=== PATIENT | female | born 1990 | race Caucasian/White ===

== ENCOUNTER 2018-03-27 09:49 | Day surgery (SDC) | payer BC ==
[~2018-03-27 09:49] MED LIST: Lactated Ringers 1,000 ML IV SCH
[2018-03-27] MEDS ORDERED: Midazolam 1 MG/ML 2 ML SDV ONE (10:14)
[2018-03-27] MEDS ORDERED: Propofol 200 MG/20 ML SDV ONE (10:14)
[2018-03-27] MEDS ORDERED: fentaNYL 250 MCG/5 ML SDV ONE (10:15)
--- NOTE | 2018-03-27 10:15 | PCM.PREANE ---
Preanesthetic Assessment - Anesthesia/Transfusion/Family Hx Anesthesia History: Prior Anesthesia Without Reaction Family History of Anesthesia Reaction: No Transfusion History: No Prior Transfusion(s) Intubation History: Unknown - Review of Systems General: No Symptoms Pulmonary: No Symptoms Cardiovascular: No Symptoms Gastrointestinal: No Symptoms Neurological: No Symptoms Other: Reports: None - Physical Assessment Height: 1.68 m Weight: 119.748 kg ASA Class: 2 Mental Status: Alert & Oriented x3 Airway Class: Mallampati = 2 Dentition: Reports: Normal Dentition, Broken Tooth/Teeth (left upper (back) x1) Thyro-Mental Finger Breadths: 3 Mouth Opening Finger Breadths: 3 ROM/Head Extension: Full Lungs: Clear to Auscultation, Normal Respiratory Effort Cardiovascular: Regular Rate, Regular Rhythm - Allergies Allergies/Adverse Reactions: Allergies Allergy/AdvReac Type Severity Reaction Status Date / Time peanut Allergy Anaphylactic Verified 12/19/16 10:56 Shock - Blood Blood Available: No - Anesthesia Plan Pre-Op Medication Ordered: None - Acknowledgements Anesthesia Type Planned: General Anesthesia Pt an Appropriate Candidate for the Planned Anesthesia: Yes Alternatives and Risks of Anesthesia Discussed w Pt/Guardian: Yes Pt/Guardian Understands and Agrees with Anesthesia Plan: Yes PreAnesthesia Questionnaire HEENT History: Reports: Allergic Rhinitis, Impaired Vision, Other (See Below) Other HEENT History: wears glasses, hx of fx jaw Respiratory History: Reports: Asthma Gastrointestinal History: Reports: Other (See Below) Other Gastrointestinal History: heartburn with [employer]ICAL SUPPORT SPECIALIST History: Reports: Musculoskeletal History: Reports: Fracture Other Musculoskeletal History: hx of fx jaw, fingers and wrist Neurological History: Reports: Other (See Below) (constantly numb fingers, possible cause she gained 100 pounds) Other Neuro History: hx of motion sickness Psychiatric History: Reports: Anxiety Endocrine/Metabolic History: Reports: Obesity/BMI 30+ (BMI 42.6) - Past Surgical History HEENT Surgical History: Reports: Oral Surgery Other HEENT Surgeries/Procedures: wisdom teeth Female Surgical History: Reports: Section (x3), Tubal Ligation - SUBSTANCE USE Smoking Status *Q: Former Smoker (quit smoking 12/15) Tobacco Use Within Last Twelve Months: No Recreational Drug Use History: No - HOME MEDS Home Medications: Home Meds Acetaminophen [Tylenol] 2 tab PO ASDIRECTED PRN 12/19/16 [History] Ibuprofen [IJD: Ibuprofen] 800 mg PO Q8H PRN #30 tablet 12/23/16 [Rx] Albuterol [Ventolin HFA] 2 puff INH Q4H PRN 03/23/18 [History] Iron Supplement 20 mg PO DAILY 03/23/18 [History] Multivitamin [One Daily Multivitamin] 1 tab PO DAILY 03/23/18 [History] - CURRENT (IN HOUSE) MEDS Current Meds: Current Medications Lactated Ringer's (Ringers, Lactated) 1,000 mls @ 125 mls/hr IV ASDIRECTED ARGELIA
[2018-03-27] MEDS ORDERED: Succinylcholine 200 MG/10 ML MDV ONE (10:20)
[2018-03-27] MEDS ORDERED: Rocuronium 10 MG/ML 10 ML Syringe ONE (10:20)
[2018-03-27] MEDS ORDERED: Lidocaine 2% 5 ML SDV ONE (10:21)
--- NOTE | 2018-03-27 11:18 | PCM.OPNOTE ---
- General Post-Op/Procedure Note Date of Surgery/Procedure: 03/27/18 Operative Procedure(s): operative hysteroscopy, polypectomy, fractional dilatation and curettage Findings: uterus anteverted, sounds to 9 cm. polypoid lesion anterior lower uterine segment, removed, several polypoid lesions at fundus removed, irregular dyssynchronous endometrium. Pre Op Diagnosis: menometrorrhagia, endometrial polyp Post-Op Diagnosis: Same Anesthesia Technique: General LMA Primary Surgeon: Pratima Soto Anesthesia Provider: Lebron Sam Pathology: endometrial polyp and directed biopsied, endocervical curettings, endometrial curettings Fluid Replacement, Intraop: 500 EBL in mLs: 20 Drain/Tube Comments:: hysteroscopic deficit 500 ml NS Complications: None known Condition: Good
[2018-03-27] MEDS ORDERED: Ketorolac 30 MG/ML SDV IVPUSH ONE (11:23)
--- NOTE | 2018-03-27 11:49 | PCM.POSTAN ---
POST ANESTHESIA ASSESSMENT - MENTAL STATUS Mental Status: Alert, Oriented - RESPIRATORY Respiratory Status: Respiratory Rate WNL, Airway Patent, O2 Saturation Stable - CARDIOVASCULAR CV Status: Pulse Rate WNL, Blood Pressure Stable - GASTROINTESTINAL GI Status: No Symptoms - PAIN Pain Score: 2 - POST OP HYDRATION Hydration Status: Adequate & Stable - OBSERVATIONS Free Text/Narrative:: no anesthesia problems
--- NOTE | 2018-03-27 12:29 | OR ---
SURGEON: Pratima Soto M.D. DATE OF PROCEDURE: 03/27/2018 PREOPERATIVE DIAGNOSES: 1. Menometrorrhagia. 2. Uterine polyps. POSTOPERATIVE DIAGNOSES: 1. Menometrorrhagia. 2. Uterine polyps. PROCEDURES: Operative hysteroscopy with polypectomy, directed biopsy and fractional D and C. ANESTHESIA: General LMA. ESTIMATED BLOOD LOSS: Less than 20 mL. FLUIDS: 500 mL crystalloid. Hysteroscopic deficit 500 mL normal saline. COMPLICATIONS: None known. DISPOSITION: Stable to recovery. OPERATIVE FINDINGS: Uterus anteverted, sounds to 9 cm. The endometrium in general appeared dyssynchronous, irregular, and prominent. Towards anterior lower uterine segment and also toward the fundus, there were 2 polypoid lesions, each of which were removed. Bilateral tubal ostia were identified. There was excellent visualization on hysteroscopy. BRIEF HISTORY: This is a 27-year-old female, she has had 6 weeks of continuous bleeding. Initial ultrasound showed a 20 mm endometrial thickness with cystic areas within. She subsequently had extremely heavy bleeding followed by a saline- enhanced ultrasound, which showed each endometrial thickness separately measured at 4 mm, total endometrial thickness of 8 mm with polypoid lesions in the lower uterine segment. I recommended proceeding with a hysteroscopic polypectomy, fractional D and C with the option of placing an IUD at the time of the procedure. I did not recommend proceeding with ablation without any prior endometrial biopsy. She declined the Mirena but agrees to proceed with a hysteroscopy-directed biopsy polypectomy and fractional D and C, with risks discussed including bleeding, infection, uterine perforation with injury to surrounding visceral, risk of thromboembolic event, and risk of anesthesia. Understanding all these risks, she does desire to proceed. DESCRIPTION OF PROCEDURE: With the patient in the dorsal lithotomy position, under adequate general LMA analgesia, the perineum and vagina were prepped with Betadine and draped in the usual fashion for vaginal surgery. SCDs were in place. The bladder had been straight cathed and an appropriate time-out was held. After this, a bimanual examination was performed with findings as noted above. Speculum was placed in the vagina. The cervix was grasped with an Allis clamp. The cervix was easily dilated to an 8 mm Hegar dilator. The 0 degree hysteroscope compatible with the MyoSure was placed into the uterine cavity and there was excellent visualization with findings as noted above. The MyoSure was then utilized to excise the polypoid areas as well as do biopsies of the prominent areas of endometrium. This being completed, sharp curettage of the endocervix was performed and tissue was collected with a Cytobrush and sent for pathology. Sharp curettage of the endometrium was then performed starting at 12 o'clock and proceeding in a clockwise manner. There was a moderate amount of tissue obtained. These were also sent for pathology. All the instruments were removed from the vagina. There was minimal vaginal bleeding. Bimanual examination revealed a firm, anteverted uterus. Final sponge, needle, and instrument counts were reported as correct. There were no known complications. The patient was transferred to recovery in good condition. JAXON / GOSIA /[id number]
--- NOTE | 2018-03-27 12:35 | PCM48HPAN ---
Post Anesthesia Note - EVALUATION WITHIN 48HRS OF ANESTHETIC Vital Signs in Normal Range: Yes Patient Participated in Evaluation: Yes Respiratory Function Stable: Yes Airway Patent: Yes Cardiovascular Function Stable: Yes Hydration Status Stable: Yes Pain Control Satisfactory: Yes Nausea and Vomiting Control Satisfactory: Yes Mental Status Recovered: Yes Resp Rate: 15
== END 2018-03-27 12:42 | disposition home or self-care (01) ==
LOC: MW.SDS 09:49
PROVIDERS: ATTEND Obstetrics & Gynecology
DX: N84.0 Polyp of corpus uteri (principal); N92.1 Excessive and frequent menstruation with irregular cycle; J45.909 Unspecified asthma, uncomplicated; L68.0 Hirsutism; E66.9 Obesity, unspecified; Z68.41 Body mass index [BMI] 40.0-44.9, adult; Z87.891 Personal history of nicotine dependence; Z79.899 Other long term (current) drug therapy; F41.9 Anxiety disorder, unspecified
CPT/HCPCS: 58558; J0330; J1885; J2250; J3010; J7120; 00952; 88305; J2704

== ENCOUNTER 2021-05-11 10:51 | Observation (INO) | payer BC ==
[2021-05-11] MEDS ORDERED: Sodium Chloride 0.9% 1,000 ML IV ONE ×2 (11:21→12:14)
--- NOTE | 2021-05-11 11:28 | EDM.PDOC ---
ED HPI GENERAL MEDICAL PROBLEM - General Chief Complaint: Abdominal Pain Stated Complaint: LFT SIDE LOWER SHARP STABBING PAIN Time Seen by Provider: 05/11/21 10:52 Source of Information: Reports: Patient History Limitations: Reports: No Limitations - History of Present Illness INITIAL COMMENTS - FREE TEXT/NARRATIVE: HISTORY AND PHYSICAL: History of present illness: Patient is a 31-year-old female who presents emergency room today with concern of left lower quadrant abdominal pain that started last night that she describes as sharp in nature and states has been coming and going. Patient describes as "ovary pain "but states that she has never had this pain before. Patient states she does have a history of tubal ligation so does not believe to be . Patient states that she does have some fibroids in her uterus, otherwise denies any other health history. Patient denies any abdominal surgery other than the tubal ligation. Patient states that starting today, the pain has now spread to most of her abdomen and is in her right lower abdomen and right upper abdomen and states that she has a hard time moving due to the pain and discomfort. Patient denies any trauma or injury. Patient states she does have some associated nausea but has not vomited. Patient states that she called the [facility] today and was instructed to come to the emergency room due to her symptoms. Patient denies fever, chills, chest pain, shortness of breath, or cough. Denies headache, neck stiff ness, change in vision, syncope, or near syncope. Denies vomiting, diarrhea, constipation, or dysuria. Has not noted any blood in urine or stool. Patient has been eating and drinking appropriately. Review of systems: As per history of present illness and below otherwise all systems reviewed and negative. Past medical history: As per history of present illness and as reviewed below otherwise noncontributory. Surgical history: As per history of present illness and as reviewed below otherwise noncontributory. Social history: See social history for further information Family history: As per history of present illness and as reviewed below otherwise noncontrib utory. Physical exam: General: Patient is alert, oriented, and in no acute distress. Patient laying comfortably on exam table. Tachycardic 115-120s otherwise vitally stable and reviewed by me. HEENT: Atraumatic, normocephalic, pupils equal and reactive bilaterally, negative for conjunctival pallor or scleral icterus, mucous membranes moist, TMs normal bilaterally, throat clear, neck supple, nontender, trachea midline. No drooling or trismus noted. No meningeal signs. No hot potato voice noted. Lungs: Clear to auscultation, breath sounds equal bilaterally, chest nontender. Heart: S1S2, regular rate and rhythm without overt murmur Abdomen: Soft, nondistended, moderate RUQ, RLQ tenderness with guarding, negative rebound/godfrey. Negative for masses or hepatosplenomegaly. Negative for costovertebral tenderness. Pelvis: Stable nontender. Genitourinary: I did offer patient a genitourinary exam, however, she declines at this time stating she has recently had 1 and would not like to repeat this. All risks versus benefits discussed with patient and expresses understanding. Rectal: Deferred. Skin: Intact, warm, dry. No lesions or rashes noted. Extremities: Atraumatic, negative for cords or calf pain. Neurovascular unremarkable. Neuro: Awake, alert, oriented. Cranial nerves II through XII unremarkable. Cerebellum unremarkable. Motor and sensory unremarkable throughout. Exam nonfocal. Notes: Patient is a 31-year-old female who presents emergency room today secondary to left-sided lower sharp abdominal pain that began last night and worsened throughout today spreading to her right sided abdomen. Upon arrival to the ED, patient is tachycardic 115's to 120s on exam, otherwise is vitally stable and well-appearing on exam. Patient does have moderate right upper quadrant and right lower quadrant tenderness with guarding negative rebound and Godfrey. Although patient complains of left-sided lower sharp abdominal pain, on exam, her pain is primarily right-sided. I did offer to perform a genitourinary exam, however, patient declines at this time stating she has had a recent exam and would not like to repeat this. All risks versus benefits discussed with patient and expresses understanding. Will obtain basic lab work, with intention of obtaining transvaginal ultrasound given description of "sharp ovary pain" and abdominal pelvic CT scan with contrast and reassess patient. See Dr. Acosta dictation for specific EKG interpretation. However, sinus tachycardia with a rate of 101 without signs of STEMI or acute ischemic changes. CBC remarkable leukocytosis of 18.73 and lactate within normal limits, mild derangements of remainder of CBC unremarkable. CMP mild derangements unremarkable. hCG negative. Urinalysis clear for any infection. Blood cultures added on and pending. Given patient's leukocytosis with elevated heart rate, sepsis concern at 1300. Initiated a 20 cc/kg bolus of fluids while awaiting imaging completion, source of possible infection not clear at this time. Transvaginal ultrasound shows mild homogeneous thickening of the endometrium at 12 mm. Trace free fluid in the pelvis. Abdominal pelvic CT scan shows focal segmental thickening and pericolonic inflammation of the mid sigmoid colon commensurate with diverticulitis. Normal appendix. Hepatomegaly with hepatic steatosis. All incidental findings of imaging today discussed with patient and to have this followed up at a later date with a primary care provider. Patient had initially declined Toradol, Zofran or Dilaudid initially on presentation to the emergency room. However, on reevaluation of patient, she states she has worsening abdominal pain and would like some pain medication at this time. Also upon reevaluation of patient, she remains mildly tachycardic rate around 100 which increases to approximately 105-110 with movement. Patient also now developing chills at bedside. Patient has been initiated IV levofloxacin 750mg and Flagyl 500mg IV at approximately 14:15. Did call and speak to the hospitalist on-call, Dr. Mitchell, and thoroughly discussed patient's case. Will admit to observation to Dr. Mitchell. Patient transitioned in stable condition to the floor under the care of Dr. Mitchell. Voices understanding and is agreeable to plan of care. Denies any further questions or concerns at this time. Diagnostics: EKG, CBC, CMP, UA, serum hCG, lipase, abdominal pelvic CT with contrast, transvaginal ultrasound, lactate, blood cultures x 2, COVID19 Therapeutics: I did offer patient Toradol Zofran and dilaudid but she declines at this time, agreeable to pain medication upon reevaluation of patient. (Dilaudid, Zofran, Toradol, Ciprofloxacin, Flagyl) Impression: Diverticulitis SIRS r/o Sepsis Plan: Admit to observation to Dr. Mitchell Definitive disposition and diagnosis as appropriate pending reevaluation and review of above. left lower abdominal pain Pain Score (Numeric/FACES): 5 - Related Data Allergies Allergy/AdvReac Type Severity Reaction Status Date / Time peanut Allergy Anaphylactic Verified 05/11/21 11:08 Shock Home Meds: Home Meds Albuterol [Ventolin HFA] 2 puff INH Q4H PRN 03/23/18 [History] Past Medical History HEENT History: Reports: Allergic Rhinitis, Impaired Vision, Other (See Below) Other HEENT History: wears glasses, hx of fx jaw Respiratory History: Reports: Asthma Gastrointestinal History: Reports: Other (See Below) Other Gastrointestinal History: heartburn with [employer]ATOR History: Reports: Musculoskeletal History: Reports: Fracture Other Musculoskeletal History: hx of fx jaw, fingers and wrist Neurological History: Reports: Other (See Below) Other Neuro History: hx of motion sickness Psychiatric History: Reports: Anxiety Endocrine/Metabolic History: Reports: Obesity/BMI 30+ - Past Surgical History Head Surgeries/Procedures: Reports: None HEENT Surgical History: Reports: Oral Surgery Other HEENT Surgeries/Procedures: wisdom teeth Female Surgical History: Reports: Section, Tubal Ligation, Other (See Below) Other Female Surgeries/Procedures: Uterine polyps Social & Family History - Family History HEENT: Reports: None Cardiac: Reports: None Respiratory: Reports: Asthma GI: Reports: None : Reports: None OBGYN: Reports: Musculoskeletal: Reports: None Neurological: Reports: Alzheimers Disease, Dementia Psychiatric: Reports: Anxiety Endocrine/Metabolic: Reports: None Hematologic: Reports: None Immunologic: Reports: None Dermatologic: Reports: None Oncologic: Reports: None - Tobacco Use Tobacco Use Status *Q: Never Tobacco User - Recreational Drug Use Recreational Drug Use: No ED ROS GENERAL - Review of Systems Review Of Systems: Comprehensive ROS is negative, except as noted in HPI. ED EXAM, GENERAL - Physical Exam Exam: See Below (see dictation) Course - Vital Signs Last Recorded V/S: Last Vital Signs Temp 96.6 F L 05/11/21 21:04 Pulse 82 05/11/21 21:04 Resp 17 05/11/21 21:04 BP 100/54 L 05/11/21 21:04 Pulse Ox 98 05/11/21 21:04 - Orders/Labs/Meds Orders: Active Orders 24 hr Category Date Time Status Admission Status [Patient Status] [ADT] Stat ADT 05/11/21 14:33 Active CULTURE BLOOD [BC] Stat Lab 05/11/21 12:58 Received CULTURE BLOOD [BC] Stat Lab 05/11/21 13:05 Received Blood Culture x2 Reflex Set [OM.PC] Stat Oth 05/11/21 12:13 Ordered Medication Orders Enoxaparin Sodium (Enoxaparin 40 Mg/0.4 Ml Syringe) 40 mg SUBCUT Q24H [facility] Last Admin: 05/11/21 17:45 Dose: 40 mg Documented by: MEÑO Hydromorphone HCl (Hydromorphone 1 Mg/Ml Syringe) 0.5 mg IVPUSH Q3H PRN PRN Reason: Pain (severe 7-10) Lactated Ringer's (Ringers, Lactated) 1,000 mls @ 125 mls/hr IV Q8H [facility] Last Admin: 05/11/21 17:44 Dose: 125 mls/hr Documented by: MEÑO Levofloxacin/Dextrose 750 mg/ (Premix) 150 mls @ 100 mls/hr IV Q24H [facility] Pantoprazole Sodium 40 mg/ (Sodium Chloride) 10 mls @ 300 mls/hr IV Q24H [facility] Last Admin: 05/11/21 17:44 Dose: 300 mls/hr Documented by: MEÑO Metronidazole 500 mg/ Premix 100 mls @ 100 mls/hr IV Q6H [facility] Last Admin: 05/11/21 18:47 Dose: 100 mls/hr Documented by: MEÑO Ondansetron HCl (Ondansetron 4 Mg/2 Ml Sdv) 4 mg IVPUSH Q4H PRN PRN Reason: Nausea Sodium Chloride (Sodium Chloride 0.9% 2.5 Ml Syringe) 2.5 ml FLUSH ASDIRECTED PRN PRN Reason: Keep Vein Open Labs: Laboratory Tests 05/11/21 05/11/21 05/11/21 Range/Units 11:38 11:38 11:38 WBC 18.73 H (4.0-11.0) K/uL RBC 4.75 (4.30-5.90) M/uL Hgb 13.0 (12.0-16.0) g/dL Hct 38.8 (36.0-46.0) % MCV 81.7 (80.0-98.0) fL MCH 27.4 (27.0-32.0) pg MCHC 33.5 (31.0-37.0) g/dL RDW Std Deviation 41.7 (28.0-62.0) fl RDW Coeff of Jeffery 14 (11.0-15.0) % Plt Count 283 (150-400) K/uL MPV 10.50 (7.40-12.00) fL Neut % (Auto) 80.3 H (48.0-80.0) % Lymph % (Auto) 14.9 L (16.0-40.0) % Ware % (Auto) 4.4 (0.0-15.0) % Eos % (Auto) 0.3 (0.0-7.0) % Baso % (Auto) 0.1 (0.0-1.5) % Neut # (Auto) 15.1 H (1.4-5.7) K/uL Lymph # (Auto) 2.8 H (0.6-2.4) K/uL Ware # (Auto) 0.8 (0.0-0.8) K/uL Eos # (Auto) 0.1 (0.0-0.7) K/uL Baso # (Auto) 0.0 (0.0-0.1) K/uL Nucleated RBC % 0.0 /100WBC Nucleated RBCs # 0 K/uL Sodium 140 (136-145) mmol/L Potassium 4.1 (3.5-5.1) mmol/L Chloride 103 (98-107) mmol/L Carbon Dioxide 27.9 (21.0-32.0) mmol/L BUN 13 (7.0-18.0) mg/dL Creatinine 1.0 (0.6-1.0) mg/dL Est Cr Clr Drug Dosing 72.68 mL/min Estimated GFR (MDRD) > 60.0 ml/min Glucose 98 (74-106) mg/dL Lactic Acid (0.4-2.0) mmol/L Calcium 8.6 (8.5-10.1) mg/dL Total Bilirubin 0.5 (0.2-1.0) mg/dL AST 19 (15-37) IU/L ALT 28 (14-63) IU/L Alkaline Phosphatase 71 (46-116) U/L Total Protein 7.3 (6.4-8.2) g/dL Albumin 3.2 L (3.4-5.0) g/dL Globulin 4.1 H (2.6-4.0) g/dL Albumin/Globulin Ratio 0.8 L (0.9-1.6) Lipase 69 L (73-393) U/L HCG, Qual NEGATIVE (NEG) Urine Color Urine Appearance Urine pH (5.0-8.0) Ur Specific [place] (1.001-1.035) Urine Protein (NEGATIVE) mg/dL Urine Glucose (UA) (NEGATIVE) mg/dL Urine Ketones (NEGATIVE) mg/dL Urine Occult Blood (NEGATIVE) Urine Nitrite (NEGATIVE) Urine Bilirubin (NEGATIVE) Urine Urobilinogen (<2.0) EU/dL Ur Leukocyte Esterase (NEGATIVE) SARS-CoV-2 RNA (DARNELL) (NEGATIVE) 05/11/21 05/11/21 05/11/21 Range/Units 12:13 12:19 14:40 WBC (4.0-11.0) K/uL RBC (4.30-5.90) M/uL Hgb (12.0-16.0) g/dL Hct (36.0-46.0) % MCV (80.0-98.0) fL MCH (27.0-32.0) pg MCHC (31.0-37.0) g/dL RDW Std Deviation (28.0-62.0) fl RDW Coeff of Jeffery (11.0-15.0) % Plt Count (150-400) K/uL MPV (7.40-12.00) fL Neut % (Auto) (48.0-80.0) % Lymph % (Auto) (16.0-40.0) % Ware % (Auto) (0.0-15.0) % Eos % (Auto) (0.0-7.0) % Baso % (Auto) (0.0-1.5) % Neut # (Auto) (1.4-5.7) K/uL Lymph # (Auto) (0.6-2.4) K/uL Ware # (Auto) (0.0-0.8) K/uL Eos # (Auto) (0.0-0.7) K/uL Baso # (Auto) (0.0-0.1) K/uL Nucleated RBC % /100WBC Nucleated RBCs # K/uL Sodium (136-145) mmol/L Potassium (3.5-5.1) mmol/L Chloride (98-107) mmol/L Carbon Dioxide (21.0-32.0) mmol/L BUN (7.0-18.0) mg/dL Creatinine (0.6-1.0) mg/dL Est Cr Clr Drug Dosing mL/min Estimated GFR (MDRD) ml/min Glucose (74-106) mg/dL Lactic Acid 1.1 (0.4-2.0) mmol/L Calcium (8.5-10.1) mg/dL Total Bilirubin (0.2-1.0) mg/dL AST (15-37) IU/L ALT (14-63) IU/L Alkaline Phosphatase (46-116) U/L Total Protein (6.4-8.2) g/dL Albumin (3.4-5.0) g/dL Globulin (2.6-4.0) g/dL Albumin/Globulin Ratio (0.9-1.6) Lipase (73-393) U/L HCG, Qual (NEG) Urine Color YELLOW Urine Appearance SLT CLOUDY Urine pH 6.0 (5.0-8.0) Ur Specific [place] 1.025 (1.001-1.035) Urine Protein NEGATIVE (NEGATIVE) mg/dL Urine Glucose (UA) NEGATIVE (NEGATIVE) mg/dL Urine Ketones NEGATIVE (NEGATIVE) mg/dL Urine Occult Blood NEGATIVE (NEGATIVE) Urine Nitrite NEGATIVE (NEGATIVE) Urine Bilirubin NEGATIVE (NEGATIVE) Urine Urobilinogen 0.2 (<2.0) EU/dL Ur Leukocyte Esterase NEGATIVE (NEGATIVE) SARS-CoV-2 RNA (DARNELL) NEGATIVE (NEGATIVE) Meds: Medications Generic Name Dose Route Start Last Admin Trade Name Freq PRN Reason Stop Dose Admin Enoxaparin Sodium 40 mg 05/11/21 16:00 05/11/21 17:45 Enoxaparin 40 Mg/0.4 Ml Syringe SUBCUT 40 mg Q24H ARG[facility]IA Administration Hydromorphone HCl 0.5 mg 05/11/21 16:05 Hydromorphone 1 Mg/Ml Syringe IVPUSH Q3H PRN Pain (severe 7-10) Lactated Ringer's 1,000 mls @ 125 mls/hr 05/11/21 16:00 05/11/21 17:44 Ringers, Lactated IV 125 mls/hr Q8H ARGELIA Administration Levofloxacin/Dextrose 750 mg/ 150 mls @ 100 mls/hr 05/12/21 14:00 Premix IV Q24H ARGELIA Pantoprazole Sodium 40 mg/ 10 mls @ 300 mls/hr 05/11/21 17:00 05/11/21 17:44 Sodium Chloride IV 300 mls/hr Q24H ARGELIA Administration Metronidazole 500 mg/ Premix 100 mls @ 100 mls/hr 05/11/21 19:00 05/11/21 18:47 IV 100 mls/hr Q6H ARG[facility]IA Administration Ondansetron HCl 4 mg 05/11/21 15:57 Ondansetron 4 Mg/2 Ml Sdv IVPUSH Q4H PRN Nausea Sodium Chloride 2.5 ml 05/11/21 15:57 Sodium Chloride 0.9% 2.5 Ml Syringe FLUSH ASDIRECTED PRN Keep Vein Open Discontinued Medications Generic Name Dose Route Start Last Admin Trade Name Freq PRN Reason Stop Dose Admin Hydromorphone HCl 0.5 mg 05/11/21 14:23 05/11/21 14:26 Hydromorphone 2 Mg/Ml Syringe IVPUSH 05/11/21 14:24 0.5 mg ONETIME ONE Administration Sodium Chloride 1,000 mls @ 999 mls/hr 05/11/21 11:21 05/11/21 11:50 Normal Saline IV 05/11/21 12:21 999 mls/hr BOLUS ONE Administration Sodium Chloride 1,000 mls @ 999 mls/hr 05/11/21 12:14 05/11/21 13:14 Normal Saline IV 05/11/21 13:14 999 mls/hr STAT ONE Administration Metronidazole 500 mg/ Premix 100 mls @ 100 mls/hr 05/11/21 14:14 05/11/21 14:26 IV 05/11/21 15:13 100 mls/hr ONETIME ONE Administration Levofloxacin/Dextrose 750 mg/ 150 mls @ 100 mls/hr 05/11/21 14:24 05/11/21 15:55 Premix IV 05/11/21 15:53 100 mls/hr ONETIME ONE Administration Metronidazole 500 mg/ Premix 100 mls @ 100 mls/hr 05/11/21 18:00 IV QID ARGELIA Iopamidol 100 ml 05/11/21 12:35 05/11/21 13:32 Iopamidol 755 Mg/Ml 100 Ml Bottle IVPUSH 05/11/21 12:36 Not Given ONETIME ONE Iopamidol 100 ml 05/11/21 12:38 05/11/21 12:38 Iopamidol 755 Mg/Ml 500 Ml Multipack Bottle IVPUSH 05/11/21 12:39 100 ml ONETIME STA Administration Ketorolac Tromethamine 30 mg 05/11/21 14:23 05/11/21 14:27 Ketorolac 30 Mg/Ml Sdv IVPUSH 05/11/21 14:24 30 mg ONETIME ONE Administration Ondansetron HCl 4 mg 05/11/21 14:39 05/11/21 14:48 Ondansetron 4 Mg/2 Ml Sdv IVPUSH 05/11/21 14:40 4 mg ONETIME ONE Administration Departure - Departure Time of Disposition: 14:45 Disposition: Refer to Observation Clinical Impression: Diverticulitis, SIRS (systemic inflammatory response syndrome) - Discharge Information Sepsis Event Note (ED) - Evaluation Sepsis Screening Result: Possible Sepsis Risk - Focused Exam Vital Signs: Vital Signs Temp Pulse Resp BP BP Pulse Ox 05/11/21 14:40 88 17 109/67 97 05/11/21 13:17 97.3 F 94 18 114/58 L 98 05/11/21 12:59 93 17 112/51 L 98 05/11/21 11:09 96.3 F L 116 H 18 121/83 96 - My Orders Last 24 Hours: My Active Orders 05/11/21 12:13 Blood Culture x2 Reflex Set [OM.PC] Stat 05/11/21 12:58 CULTURE BLOOD [BC] Stat 05/11/21 13:05 CULTURE BLOOD [BC] Stat 05/11/21 14:33 Admission Status [Patient Status] [ADT] Stat - Assessment/Plan Last 24 Hours: My Active Orders 05/11/21 12:13 Blood Culture x2 Reflex Set [OM.PC] Stat 05/11/21 12:58 CULTURE BLOOD [BC] Stat 05/11/21 13:05 CULTURE BLOOD [BC] Stat 05/11/21 14:33 Admission Status [Patient Status] [ADT] Stat
--- NOTE | 2021-05-11 11:36 | PCM.SN.2 ---
- Free Text/Narrative Note: EKG done at 1133 sinus tachycardia with a heart rate of 101 IL interval 160 QT duration 459 and axis of 31. QRS ST and T are normal. Is no prior for comparison. Impression except for the rate this is normal EKG.
[2021-05-11 12:14] LABS: BLOOD UREA NITROGEN,BUN 13 mg/dL (7.0-18.0); CARBON DIOXIDE,CO2 27.9 mmol/L (21.0-32.0); CHLORIDE,CL 103 mmol/L (98-107); GLUCOSE RANDOM 98 mg/dL (74-106); LIPASE 69 U/L (73-393); POTASSIUM,K 4.1 mmol/L (3.5-5.1); SODIUM,NA 140 mmol/L (136-145)
[2021-05-11] MEDS ORDERED: Iopamidol 755 Mg/ML 100 ML Bottle IVPUSH ONE (12:35)
[2021-05-11] MEDS ORDERED: Iopamidol 755 MG/ML 500 ML Multipack Bottle IVPUSH STA (12:38)
--- NOTE | 2021-05-11 13:51 | CT ---
Indication: Periumbilical abdominal pain Technique: Volumetric multidetector CT images of the abdomen and pelvis were obtained after the administration of intravenous contrast. 100 cc Isovue 370 low osmolar intravenous contrast Comparison: None available. Findings: The lung bases are clear. The liver is enlarged with mild to moderate hepatic steatosis. There is no evidence of focal abnormality. The portal vein is patent. The gallbladder is unremarkable without evidence of radiopaque calculus. There is no significant common biliary ductal dilatation or abrupt cut off. The spleen is normal in enhancement and size. The stomach and duodenum are grossly unremarkable. The pancreas is normal in enhancement without significant atrophy. The adrenal glands are unremarkable. The kidneys demonstrate preserved corticomedullary differentiation without evidence of obstructive uropathy. There is focal segmental thickening and pericolonic inflammation of the mid sigmoid colon commensurate with uncomplicated diverticulitis. The remaining bowel is grossly unremarkable. The appendix is unremarkable. There is no significant mesenteric, retroperitoneal, or pelvic sidewall lymph nodes. The aorta is nonaneurysmal. There is no significant atherosclerotic disease appreciated. The solid pelvic viscera are grossly unremarkable. There is no free fluid or free air. There is a small fat containing umbilical hernia. The lumbar vertebral body heights are grossly maintained with minimal endplate Schmorl`s defects. There is mild to moderate degenerative disc disease. There is no evidence of displaced fracture. Impression: Focal segmental thickening and pericolonic inflammation of the mid sigmoid colon commensurate with diverticulitis. Normal appendix. Hepatomegaly and hepatic steatosis. Please note that all CT scans at this facility use dose modulation, iterative reconstruction, and/or weight-based dosing when appropriate to reduce radiation dose to as low as reasonably achievable. Dictated by Shabbir Vidal MD @ 05/11/2021 1:50:[address] Shabbir Vidal @ May 11 2021 1:50PM
--- NOTE | 2021-05-11 14:01 | US ---
INDICATION: Quadrant sharp stabbing pain TECHNIQUE: Ultrasound pelvis transvaginal only. COMPARISON: None FINDINGS: Uterus: 8.5 centimeter x 4.7 centimeter 4.8 centimeter normal echotexture of the myometrium. No masses. Endometrium: The endometrium measures 12 mm in thickness. No sign of endometrial mass or fluid. Right ovary: 2.8 centimeter x 2.5 centimeter x 1.5 centimeter. No ovarian or adnexal masses. Normal arterial and venous blood flow. Left ovary: 3.1 centimeter x 2.7 centimeter x 1.8 centimeter. No ovarian or adnexal masses. Normal arterial and venous blood flow. Cul-de-sac: Trace free fluid. IMPRESSION: Mild homogeneous thickening of the endometrium at 12 millimeters. Trace free fluid in the pelvis. Dictated by Lebron Chaves MD @ 05/11/2021 2:00:[address] Lebron Chaves @ May 11 2021 2:00PM
[2021-05-11] MEDS ORDERED: metroNIDAZOLE/Normal Saline 500 MG in Premix Bag 1 BAG IV ONE (14:14)
[2021-05-11] MEDS ORDERED: HYDROmorphone 2 MG/ML Syringe IVPUSH ONE (14:23)
[2021-05-11] MEDS ORDERED: Ketorolac 30 MG/ML SDV IVPUSH ONE (14:23)
[2021-05-11] MEDS ORDERED: Levofloxacin/Dextrose 5%-Water 750 MG in Premix Bag 1 BAG IV ONE (14:24)
[2021-05-11] MEDS ORDERED: Ondansetron 4 MG/2 ML SDV IVPUSH ONE (14:39)
[2021-05-11] MEDS ORDERED: Sodium Chloride 0.9% 2.5 ML Syringe FLUSH PRN (15:57)
--- NOTE | 2021-05-11 15:57 | PCM.HP.2 ---
H&P History of Present Illness - General Date of Service: 05/11/21 Admit Problem/Dx: Admission Diagnosis/Problem Admission Diagnosis/Problem Diverticulitis Source of Information: Patient History Limitations: Reports: No Limitations - History of Present Illness Initial Comments - Free Text/Narative: This 31-year-old female with past medical history of obesity presented to the ER today with left lower quadrant pain. She reports this pain started suddenly last evening and has progressively worsened to the point where she felt she need to be evaluated. She reports the pain has spread to cover the entire abdomen having dry heaves and some nausea. She reports that last evening she felt like she eventually had a fever but was not able to check it she felt like she was s weating even though she had the fan and AC on in her home. She reports that she felt as though she is had a sinus infection or increased congestion over the last week and otherwise has not felt well and was eating a lot of fast food and getting [employer]. She otherwise has been eating more healthy and intentionally has lost 30 to 40 pounds over the last few months. She denies any chest pain shortness of breath palpitations. No dysuria but does report some increased abdominal pain when she is emptying her bladder. Denies any overt frequency urgency or pain with urination. She denies history of this in the past denies history of IBD or IBS but does report that her grandma has diverticulitis diverticulosis as well. She denies any history of bowel habit changes and no cancer history for her. She denies any history of colonoscopy in the past. She denies any tobacco use recreational drug use or alcohol use. In the ER leukocytosis 18,000 noted with a left shift. Platelet count 283,000. Sodium 140 potassium 4.1 BUN/creatinine 13 and 1.0. Lactic acid 1.1 lipase [address] negative[address] UA negative. CT of her abdomen pelvis was obtained due to abdominal pain and leukocytosis. This revealed enlarged liver with hepatic Stata ptosis. She was informed of this of the in the ER. It also showed focal segmental thickening and pericolonic inflammation of the mid sigmoid colon with uncomplicated diverticulitis remaining bowel is grossly unremarkable. Normal appendix. Upon arrival to the ER she was noted to be tachycardic with temperature of 96.3. Blood pressure stable 121/83. Patient lactic acid normal. She was treated with 2 L fluid bolus in the ER along with Flagyl and Levaquin. Blood cultures obtained prior to antibiotic administration. Patient to be admitted secondary to acute sigmoid diverticulitis. left lower abdominal pain Pain Score (Numeric/FACES): 5 - Related Data Allergies/Adverse Reactions: Allergies Allergy/AdvReac Type Severity Reaction Status Date / Time peanut Allergy Anaphylactic Verified 05/11/21 11:08 Shock Home Medications: Home Meds Albuterol [Ventolin HFA] 2 puff INH Q4H PRN 03/23/18 [History] Past Medical History HEENT History: Reports: Allergic Rhinitis, Impaired Vision, Other (See Below) Other HEENT History: wears glasses, hx of fx jaw Cardiovascular History: Reports: None. Denies: Afib, Blood Clots/VTE/DVT, Hypertension Respiratory History: Reports: Asthma Gastrointestinal History: Reports: Other (See Below). Denies: GI Bleed, Inflammatory Bowel Disease, Irritable Bowel Syndrome Other Gastrointestinal History: heartburn with HOSPITAL ADMISSIONS OFFICER History: Reports: Musculoskeletal History: Reports: Fracture Other Musculoskeletal History: hx of fx jaw, fingers and wrist Neurological History: Reports: Other (See Below) Other Neuro History: hx of motion sickness Psychiatric History: Reports: Anxiety Endocrine/Metabolic History: Reports: Obesity/BMI 30+. Denies: Diabetes, Type II, Hypothyroidism - Past Surgical History Head Surgeries/Procedures: Reports: None HEENT Surgical History: Reports: Oral Surgery Other HEENT Surgeries/Procedures: wisdom teeth Female Surgical History: Reports: Section, Tubal Ligation, Other (See Below) Other Female Surgeries/Procedures: Uterine polyps Social & Family History - Family History HEENT: Reports: None Cardiac: Reports: None Respiratory: Reports: Asthma GI: Reports: None : Reports: None OBGYN: Reports: Musculoskeletal: Reports: None Neurological: Reports: Alzheimers Disease, Dementia Psychiatric: Reports: Anxiety Endocrine/Metabolic: Reports: None Hematologic: Reports: None Immunologic: Reports: None Dermatologic: Reports: None Oncologic: Reports: None - Tobacco Use Tobacco Use Status *Q: Never Tobacco User - Alcohol Use Alcohol Use History: No - Recreational Drug Use Recreational Drug Use: No - Living Situation & Occupation Living situation: Reports: with Family Occupation: Employed H&P Review of Systems - Review of Systems: Review Of Systems: See Below General: Reports: Fever, Chills, Malaise HEENT: Reports: Sinus Congestion. Denies: Headaches, Sore Throat, Vertigo Pulmonary: Reports: No Symptoms. Denies: Shortness of Breath Cardiovascular: Reports: No Symptoms. Denies: Chest Pain Gastrointestinal: Reports: Abdominal Pain (LLQ), Nausea. Denies: Black Stool, Bloody Stool, Diarrhea, Vomiting Genitourinary: Reports: No Symptoms. Denies: Dysuria, Frequency, Burning, Pain Musculoskeletal: Reports: No Symptoms. Denies: Neck Pain Skin: Reports: No Symptoms. Denies: Wound Psychiatric: Reports: No Symptoms Neurological: Reports: No Symptoms Hematologic/Lymphatic: Reports: No Symptoms Immunologic: Reports: No Symptoms Exam - Exam Exam: See Below - Vital Signs Vital Signs: Last Vital Signs Temp 97.3 F 05/11/21 13:17 Pulse 88 05/11/21 14:40 Resp 17 05/11/21 14:40 BP 109/67 05/11/21 14:40 Pulse Ox 97 05/11/21 14:40 Weight: 108.862 kg - Exam General: Alert, Oriented, Cooperative HEENT: Conjunctiva Clear, Mucosa Moist & [place], Posterior Pharynx Clear Lungs: Clear to Auscultation, Normal Respiratory Effort Cardiovascular: Regular Rate, Regular Rhythm GI/Abdominal Exam: Normal Bowel Sounds, Soft, No Distention, Tender (diffusely with most pain to LLQ) Extremities: Normal Inspection, Normal Range of Motion, Non-Tender, No Pedal Edema Neurological: Cranial Nerves Intact Neuro Extensive - Mental Status: Alert, Oriented x3 Neuro Extensive - Motor, Sensory, Reflexes: CN II-XII Intact Psychiatric: Alert, Normal Affect, Normal Mood - Patient Data Lab Results Last 24 hrs: Laboratory Results - last 24 hr 05/11/21 05/11/21 05/11/21 Range/Units 11:38 11:38 11:38 WBC 18.73 H (4.0-11.0) K/uL RBC 4.75 (4.30-5.90) M/uL Hgb 13.0 (12.0-16.0) g/dL Hct 38.8 (36.0-46.0) % MCV 81.7 (80.0-98.0) fL MCH 27.4 (27.0-32.0) pg MCHC 33.5 (31.0-37.0) g/dL RDW Std Deviation 41.7 (28.0-62.0) fl RDW Coeff of Jeffery 14 (11.0-15.0) % Plt Count 283 (150-400) K/uL MPV 10.50 (7.40-12.00) fL Neut % (Auto) 80.3 H (48.0-80.0) % Lymph % (Auto) 14.9 L (16.0-40.0) % [place] % (Auto) 4.4 (0.0-15.0) % Eos % (Auto) 0.3 (0.0-7.0) % Baso % (Auto) 0.1 (0.0-1.5) % Neut # (Auto) 15.1 H (1.4-5.7) K/uL Lymph # (Auto) 2.8 H (0.6-2.4) K/uL [place] # (Auto) 0.8 (0.0-0.8) K/uL Eos # (Auto) 0.1 (0.0-0.7) K/uL Baso # (Auto) 0.0 (0.0-0.1) K/uL Nucleated RBC % 0.0 /100WBC Nucleated RBCs # 0 K/uL Sodium 140 (136-145) mmol/L Potassium 4.1 (3.5-5.1) mmol/L Chloride 103 (98-107) mmol/L Carbon Dioxide 27.9 (21.0-32.0) mmol/L BUN 13 (7.0-18.0) mg/dL Creatinine 1.0 (0.6-1.0) mg/dL Est Cr Clr Drug Dosing 72.68 mL/min Estimated GFR (MDRD) > 60.0 ml/min Glucose 98 (74-106) mg/dL Lactic Acid (0.4-2.0) mmol/L Calcium 8.6 (8.5-10.1) mg/dL Total Bilirubin 0.5 (0.2-1.0) mg/dL AST 19 (15-37) IU/L ALT 28 (14-63) IU/L Alkaline Phosphatase 71 (46-116) U/L Total Protein 7.3 (6.4-8.2) g/dL Albumin 3.2 L (3.4-5.0) g/dL Globulin 4.1 H (2.6-4.0) g/dL Albumin/Globulin Ratio 0.8 L (0.9-1.6) Lipase 69 L (73-393) U/L HCG, Qual NEGATIVE (NEG) Urine Color Urine Appearance Urine pH (5.0-8.0) Ur Specific [place] (1.001-1.035) Urine Protein (NEGATIVE) mg/dL Urine Glucose (UA) (NEGATIVE) mg/dL Urine Ketones (NEGATIVE) mg/dL Urine Occult Blood (NEGATIVE) Urine Nitrite (NEGATIVE) Urine Bilirubin (NEGATIVE) Urine Urobilinogen (<2.0) EU/dL Ur Leukocyte Esterase (NEGATIVE) SARS-CoV-2 RNA (DARNELL) (NEGATIVE) 05/11/21 05/11/21 05/11/21 Range/Units 12:13 12:19 14:40 WBC (4.0-11.0) K/uL RBC (4.30-5.90) M/uL Hgb (12.0-16.0) g/dL Hct (36.0-46.0) % MCV (80.0-98.0) fL MCH (27.0-32.0) pg MCHC (31.0-37.0) g/dL RDW Std Deviation (28.0-62.0) fl RDW Coeff of Jeffery (11.0-15.0) % Plt Count (150-400) K/uL MPV (7.40-12.00) fL Neut % (Auto) (48.0-80.0) % Lymph % (Auto) (16.0-40.0) % [place] % (Auto) (0.0-15.0) % Eos % (Auto) (0.0-7.0) % Baso % (Auto) (0.0-1.5) % Neut # (Auto) (1.4-5.7) K/uL Lymph # (Auto) (0.6-2.4) K/uL [place] # (Auto) (0.0-0.8) K/uL Eos # (Auto) (0.0-0.7) K/uL Baso # (Auto) (0.0-0.1) K/uL Nucleated RBC % /100WBC Nucleated RBCs # K/uL Sodium (136-145) mmol/L Potassium (3.5-5.1) mmol/L Chloride (98-107) mmol/L Carbon Dioxide (21.0-32.0) mmol/L BUN (7.0-18.0) mg/dL Creatinine (0.6-1.0) mg/dL Est Cr Clr Drug Dosing mL/min Estimated GFR (MDRD) ml/min Glucose (74-106) mg/dL Lactic Acid 1.1 (0.4-2.0) mmol/L Calcium (8.5-10.1) mg/dL Total Bilirubin (0.2-1.0) mg/dL AST (15-37) IU/L ALT (14-63) IU/L Alkaline Phosphatase (46-116) U/L Total Protein (6.4-8.2) g/dL Albumin (3.4-5.0) g/dL Globulin (2.6-4.0) g/dL Albumin/Globulin Ratio (0.9-1.6) Lipase (73-393) U/L HCG, Qual (NEG) Urine Color YELLOW Urine Appearance SLT CLOUDY Urine pH 6.0 (5.0-8.0) Ur Specific [place] 1.025 (1.001-1.035) Urine Protein NEGATIVE (NEGATIVE) mg/dL Urine Glucose (UA) NEGATIVE (NEGATIVE) mg/dL Urine Ketones NEGATIVE (NEGATIVE) mg/dL Urine Occult Blood NEGATIVE (NEGATIVE) Urine Nitrite NEGATIVE (NEGATIVE) Urine Bilirubin NEGATIVE (NEGATIVE) Urine Urobilinogen 0.2 (<2.0) EU/dL Ur Leukocyte Esterase NEGATIVE (NEGATIVE) SARS-CoV-2 RNA (DARNELL) NEGATIVE (NEGATIVE) Result Diagrams: 05/11/21 11:38 05/11/21 11:38 Sepsis Event Note - Evaluation Sepsis Screening Result: Possible Sepsis Risk Possible Source of Sepsis: GI Tract/Intra-abdominal - Focused Exam Vital Signs: Vital Signs Temp Pulse Resp BP BP Pulse Ox 05/11/21 14:40 88 17 109/67 97 05/11/21 13:17 97.3 F 94 18 114/58 L 98 05/11/21 12:59 93 17 112/51 L 98 05/11/21 11:09 96.3 F L 116 H 18 121/83 96 Capillary Refill, Detail: Less than/Equal to (</=) 2 Seconds Pulse Description: 2+ Normal Peripheral Pulse Location: Radial Skin Exam (Focused Sepsis): Normal Turgor Date Exam was Performed: 05/11/21 Time Exam was Performed: 15:45 - Problem List (1) Diverticulitis SNOMED Code(s): 175102899 ICD Code: K57.92 - DVTRCLI OF INTEST, PART UNSP, W/O PERF OR ABSCESS W/O BLEED Status: Acute Current Visit: Yes (2) SIRS (systemic inflammatory response syndrome) SNOMED Code(s): 989931416 ICD Code: R65.10 - SIRS OF NON-INFECTIOUS ORIGIN W/O ACUTE ORGAN DYSFUNCTION Status: Acute Current Visit: Yes (3) Obesity SNOMED Code(s): 442092280, 148071550 ICD Code: E66.9 - OBESITY, UNSPECIFIED Status: Chronic Current Visit: Yes Problem List Initiated/Reviewed/Updated: Yes Orders Last 24hrs: Active Orders 24 hr Category Date Time Status Admission Status [Patient Status] [ADT] Stat ADT 05/11/21 14:33 Active EKG Documentation Completion [RC] STAT Care 05/11/21 11:24 Active CULTURE BLOOD [BC] Stat Lab 05/11/21 12:58 Received CULTURE BLOOD [BC] Stat Lab 05/11/21 13:05 Received Levofloxacin/Dextrose 5%-Water [Levaquin in D5W 750 MG/ Med 05/11/21 14:24 Active 150 ML] 750 mg Premix Bag 1 bag IV ONETIME Blood Culture x2 Reflex Set [OM.PC] Stat Oth 05/11/21 12:13 Ordered Medication Orders Levofloxacin/Dextrose 750 mg/ (Premix) 150 mls @ 100 mls/hr IV ONETIME ONE Stop: 05/11/21 15:53 Assessment/Plan Comment:: This 31-year-old female admitted with acute sigmoid diverticulitis. 1. Acute sigmoid diverticulitis -Continue bowel rest -Continue IV fluids LR 125 mL/h -Blood cultures pending -Continue Levaquin 750 IV daily and Flagyl 500 mg IV 4 times daily -Dilaudid and Zofran as needed pain and nausea -Arrange outpatient general surgery follow up for colonoscopy. VTE prophylaxis: Lovenox GI prophylaxis: Protonix CODE STATUS: Full code Dispo: 2 to 3 days pending improvement.
[2021-05-11] MEDS ORDERED: Pantoprazole 40 MG Vial IV SCH (16:00)
[2021-05-11] MEDS ORDERED: HYDROmorphone 1 MG/ML Syringe IVPUSH PRN (16:05)
[2021-05-11] MEDS: Pantoprazole 40 MG in Sodium Chloride 0.9% 10 ML IV SCH (17:44)
[2021-05-11] MEDS: Lactated Ringers 1,000 ML IV SCH (17:44)
[2021-05-11] MEDS: Enoxaparin 40 MG/0.4 ML Syringe SUBCUT SCH (17:45)
[2021-05-11] MEDS ORDERED: metroNIDAZOLE/Normal Saline 500 MG in Premix Bag 1 BAG IV SCH (18:00)
[2021-05-11] MEDS: metroNIDAZOLE/Normal Saline 500 MG in Premix Bag 1 BAG IV SCH (18:47)
[2021-05-11] MEDS: Ondansetron 4 MG/2 ML SDV IVPUSH PRN (22:14)
[2021-05-12] MEDS: metroNIDAZOLE/Normal Saline 500 MG in Premix Bag 1 BAG IV SCH ×4 (00:16→18:52)
[2021-05-12] MEDS: Lactated Ringers 1,000 ML IV SCH ×3 (03:23→15:25)
[2021-05-12 05:50] LABS: BLOOD UREA NITROGEN,BUN 11 mg/dL (7.0-18.0); CARBON DIOXIDE,CO2 28.6 mmol/L (21.0-32.0); CHLORIDE,CL 105 mmol/L (98-107); GLUCOSE RANDOM 94 mg/dL (74-106); SODIUM,NA 140 mmol/L (136-145)
[2021-05-12] MEDS ORDERED: Ketorolac 30 MG/ML SDV IVPUSH ONE (09:02)
--- NOTE | 2021-05-12 10:42 | PCM.PN ---
- General Info Date of Service: 05/12/21 Admission Dx/Problem (Free Text): Admission Diagnosis/Problem Admission Diagnosis/Problem Diverticulitis Subjective Update: Reports abdominal pain is much improved. Took Dilaudid at 4:00 in the morning but that was more for her migraine which did not help. Feels she is passing gas no bowel movement, feeling so she would like to try a diet. Denies any chest pain or shortness of breath. Very eager to go home when possible. Functional Status: Reports: Pain Controlled, Tolerating Diet, Ambulating - Review of Systems HEENT: Reports: Headaches Pulmonary: Reports: No Symptoms. Denies: Shortness of Breath Cardiovascular: Reports: No Symptoms. Denies: Chest Pain Gastrointestinal: Reports: Abdominal Pain (No longer diffuse target more with dull soreness to to left lower quadrant no longer the sharp shooting pain), Nausea, Vomiting Genitourinary: Reports: No Symptoms. Denies: Dysuria, Frequency, Burning Musculoskeletal: Reports: No Symptoms Skin: Reports: No Symptoms Neurological: Reports: No Symptoms Psychiatric: Reports: No Symptoms - Patient Data Vitals - Most Recent: Last Vital Signs Temp 98.1 F 05/12/21 07:30 Pulse 86 05/12/21 07:30 Resp 18 05/12/21 07:30 BP 132/70 05/12/21 07:30 Pulse Ox 97 05/12/21 07:30 Weight - Most Recent: 112.763 kg I&O - Last 24 Hours: Intake & Output 05/11/21 05/12/21 05/12/21 22:59 06:59 14:59 Output Total 0 Balance 0 Lab Results Last 24 Hours: Laboratory Results - last 24 hr 05/11/21 05/11/21 05/11/21 Range/Units 11:38 11:38 11:38 WBC 18.73 H (4.0-11.0) K/uL RBC 4.75 (4.30-5.90) M/uL Hgb 13.0 (12.0-16.0) g/dL Hct 38.8 (36.0-46.0) % MCV 81.7 (80.0-98.0) fL MCH 27.4 (27.0-32.0) pg MCHC 33.5 (31.0-37.0) g/dL RDW Std Deviation 41.7 (28.0-62.0) fl RDW Coeff of Jeffery 14 (11.0-15.0) % Plt Count 283 (150-400) K/uL MPV 10.50 (7.40-12.00) fL Neut % (Auto) 80.3 H (48.0-80.0) % Lymph % (Auto) 14.9 L (16.0-40.0) % [place] % (Auto) 4.4 (0.0-15.0) % Eos % (Auto) 0.3 (0.0-7.0) % Baso % (Auto) 0.1 (0.0-1.5) % Neut # (Auto) 15.1 H (1.4-5.7) K/uL Lymph # (Auto) 2.8 H (0.6-2.4) K/uL Metcalfe # (Auto) 0.8 (0.0-0.8) K/uL Eos # (Auto) 0.1 (0.0-0.7) K/uL Baso # (Auto) 0.0 (0.0-0.1) K/uL Nucleated RBC % 0.0 /100WBC Nucleated RBCs # 0 K/uL Sodium 140 (136-145) mmol/L Potassium 4.1 (3.5-5.1) mmol/L Chloride 103 (98-107) mmol/L Carbon Dioxide 27.9 (21.0-32.0) mmol/L BUN 13 (7.0-18.0) mg/dL Creatinine 1.0 (0.6-1.0) mg/dL Est Cr Clr Drug Dosing 72.68 mL/min Estimated GFR (MDRD) > 60.0 ml/min Glucose 98 (74-106) mg/dL Lactic Acid (0.4-2.0) mmol/L Calcium 8.6 (8.5-10.1) mg/dL Total Bilirubin 0.5 (0.2-1.0) mg/dL AST 19 (15-37) IU/L ALT 28 (14-63) IU/L Alkaline Phosphatase 71 (46-116) U/L Total Protein 7.3 (6.4-8.2) g/dL Albumin 3.2 L (3.4-5.0) g/dL Globulin 4.1 H (2.6-4.0) g/dL Albumin/Globulin Ratio 0.8 L (0.9-1.6) Lipase 69 L (73-393) U/L HCG, Qual NEGATIVE (NEG) Urine Color Urine Appearance Urine pH (5.0-8.0) Ur Specific [place] (1.001-1.035) Urine Protein (NEGATIVE) mg/dL Urine Glucose (UA) (NEGATIVE) mg/dL Urine Ketones (NEGATIVE) mg/dL Urine Occult Blood (NEGATIVE) Urine Nitrite (NEGATIVE) Urine Bilirubin (NEGATIVE) Urine Urobilinogen (<2.0) EU/dL Ur Leukocyte Esterase (NEGATIVE) SARS-CoV-2 RNA (DARNELL) (NEGATIVE) 05/11/21 05/11/21 05/11/21 Range/Units 12:13 12:19 14:40 WBC (4.0-11.0) K/uL RBC (4.30-5.90) M/uL Hgb (12.0-16.0) g/dL Hct (36.0-46.0) % MCV (80.0-98.0) fL MCH (27.0-32.0) pg MCHC (31.0-37.0) g/dL RDW Std Deviation (28.0-62.0) fl RDW Coeff of Jeffery (11.0-15.0) % Plt Count (150-400) K/uL MPV (7.40-12.00) fL Neut % (Auto) (48.0-80.0) % Lymph % (Auto) (16.0-40.0) % [place] % (Auto) (0.0-15.0) % Eos % (Auto) (0.0-7.0) % Baso % (Auto) (0.0-1.5) % Neut # (Auto) (1.4-5.7) K/uL Lymph # (Auto) (0.6-2.4) K/uL [place] # (Auto) (0.0-0.8) K/uL Eos # (Auto) (0.0-0.7) K/uL Baso # (Auto) (0.0-0.1) K/uL Nucleated RBC % /100WBC Nucleated RBCs # K/uL Sodium (136-145) mmol/L Potassium (3.5-5.1) mmol/L Chloride (98-107) mmol/L Carbon Dioxide (21.0-32.0) mmol/L BUN (7.0-18.0) mg/dL Creatinine (0.6-1.0) mg/dL Est Cr Clr Drug Dosing mL/min Estimated GFR (MDRD) ml/min Glucose (74-106) mg/dL Lactic Acid 1.1 (0.4-2.0) mmol/L Calcium (8.5-10.1) mg/dL Total Bilirubin (0.2-1.0) mg/dL AST (15-37) IU/L ALT (14-63) IU/L Alkaline Phosphatase (46-116) U/L Total Protein (6.4-8.2) g/dL Albumin (3.4-5.0) g/dL Globulin (2.6-4.0) g/dL Albumin/Globulin Ratio (0.9-1.6) Lipase (73-393) U/L HCG, Qual (NEG) Urine Color YELLOW Urine Appearance SLT CLOUDY Urine pH 6.0 (5.0-8.0) Ur Specific [place] 1.025 (1.001-1.035) Urine Protein NEGATIVE (NEGATIVE) mg/dL Urine Glucose (UA) NEGATIVE (NEGATIVE) mg/dL Urine Ketones NEGATIVE (NEGATIVE) mg/dL Urine Occult Blood NEGATIVE (NEGATIVE) Urine Nitrite NEGATIVE (NEGATIVE) Urine Bilirubin NEGATIVE (NEGATIVE) Urine Urobilinogen 0.2 (<2.0) EU/dL Ur Leukocyte Esterase NEGATIVE (NEGATIVE) SARS-CoV-2 RNA (DARNELL) NEGATIVE (NEGATIVE) 05/12/21 05/12/21 Range/Units 04:52 04:52 WBC 11.82 H (4.0-11.0) K/uL RBC 4.38 (4.30-5.90) M/uL Hgb 11.8 L (12.0-16.0) g/dL Hct 35.9 L (36.0-46.0) % MCV 82.0 (80.0-98.0) fL MCH 26.9 L (27.0-32.0) pg MCHC 32.9 (31.0-37.0) g/dL RDW Std Deviation 42.8 (28.0-62.0) fl RDW Coeff of Jeffery 14 (11.0-15.0) % Plt Count 233 (150-400) K/uL MPV 10.20 (7.40-12.00) fL Neut % (Auto) 74.5 (48.0-80.0) % Lymph % (Auto) 19.3 (16.0-40.0) % [place] % (Auto) 5.3 (0.0-15.0) % Eos % (Auto) 0.7 (0.0-7.0) % Baso % (Auto) 0.2 (0.0-1.5) % Neut # (Auto) 8.8 H (1.4-5.7) K/uL Lymph # (Auto) 2.3 (0.6-2.4) K/uL [place] # (Auto) 0.6 (0.0-0.8) K/uL Eos # (Auto) 0.1 (0.0-0.7) K/uL Baso # (Auto) 0.0 (0.0-0.1) K/uL Nucleated RBC % 0.0 /100WBC Nucleated RBCs # 0 K/uL Sodium 140 (136-145) mmol/L Potassium 4.0 (3.5-5.1) mmol/L Chloride 105 (98-107) mmol/L Carbon Dioxide 28.6 (21.0-32.0) mmol/L BUN 11 (7.0-18.0) mg/dL Creatinine 1.0 (0.6-1.0) mg/dL Est Cr Clr Drug Dosing 72.68 mL/min Estimated GFR (MDRD) > 60.0 ml/min Glucose 94 (74-106) mg/dL Lactic Acid (0.4-2.0) mmol/L Calcium 7.9 L (8.5-10.1) mg/dL Total Bilirubin (0.2-1.0) mg/dL AST (15-37) IU/L ALT (14-63) IU/L Alkaline Phosphatase (46-116) U/L Total Protein (6.4-8.2) g/dL Albumin (3.4-5.0) g/dL Globulin (2.6-4.0) g/dL Albumin/Globulin Ratio (0.9-1.6) Lipase (73-393) U/L HCG, Qual (NEG) Urine Color Urine Appearance Urine pH (5.0-8.0) Ur Specific [place] (1.001-1.035) Urine Protein (NEGATIVE) mg/dL Urine Glucose (UA) (NEGATIVE) mg/dL Urine Ketones (NEGATIVE) mg/dL Urine Occult Blood (NEGATIVE) Urine Nitrite (NEGATIVE) Urine Bilirubin (NEGATIVE) Urine Urobilinogen (<2.0) EU/dL Ur Leukocyte Esterase (NEGATIVE) SARS-CoV-2 RNA (DARNELL) (NEGATIVE) Med Orders - Current: Current Medications Enoxaparin Sodium (Enoxaparin 40 Mg/0.4 Ml Syringe) 40 mg SUBCUT Q24H [facility] Last Admin: 05/11/21 17:45 Dose: 40 mg Documented by: Hydromorphone HCl (Hydromorphone 1 Mg/Ml Syringe) 0.5 mg IVPUSH Q3H PRN PRN Reason: Pain (severe 7-10) Last Admin: 05/12/21 04:13 Dose: 0.5 mg Documented by: Lactated Ringer's (Ringers, Lactated) 1,000 mls @ 125 mls/hr IV Q8H [facility] Last Admin: 05/12/21 03:23 Dose: 125 mls/hr Documented by: Levofloxacin/Dextrose 750 mg/ (Premix) 150 mls @ 100 mls/hr IV Q24H [facility] Pantoprazole Sodium 40 mg/ (Sodium Chloride) 10 mls @ 300 mls/hr IV Q24H [facility] Last Admin: 05/11/21 17:44 Dose: 300 mls/hr Documented by: Metronidazole 500 mg/ Premix 100 mls @ 100 mls/hr IV Q6H [facility] Last Admin: 05/12/21 06:21 Dose: 100 mls/hr Documented by: Ondansetron HCl (Ondansetron 4 Mg/2 Ml Sdv) 4 mg IVPUSH Q4H PRN PRN Reason: Nausea Last Admin: 05/11/21 22:14 Dose: 4 mg Documented by: Sodium Chloride (Sodium Chloride 0.9% 2.5 Ml Syringe) 2.5 ml FLUSH ASDIRECTED PRN PRN Reason: Keep Vein Open Discontinued Medications Hydromorphone HCl (Hydromorphone 2 Mg/Ml Syringe) 0.5 mg IVPUSH ONETIME ONE Stop: 05/11/21 14:24 Last Admin: 05/11/21 14:26 Dose: 0.5 mg Documented by: Sodium Chloride (Normal Saline) 1,000 mls @ 999 mls/hr IV BOLUS ONE Stop: 05/11/21 12:21 Last Admin: 05/11/21 11:50 Dose: 999 mls/hr Documented by: Sodium Chloride (Normal Saline) 1,000 mls @ 999 mls/hr IV STAT ONE Stop: 05/11/21 13:14 Last Admin: 05/11/21 13:14 Dose: 999 mls/hr Documented by: Metronidazole 500 mg/ Premix 100 mls @ 100 mls/hr IV ONETIME ONE Stop: 05/11/21 15:13 Last Admin: 05/11/21 14:26 Dose: 100 mls/hr Documented by: Levofloxacin/Dextrose 750 mg/ (Premix) 150 mls @ 100 mls/hr IV ONETIME ONE Stop: 05/11/21 15:53 Last Admin: 05/11/21 15:55 Dose: 100 mls/hr Documented by: Metronidazole 500 mg/ Premix 100 mls @ 100 mls/hr IV QID [facility] Iopamidol (Iopamidol 755 Mg/Ml 100 Ml Bottle) 100 ml IVPUSH ONETIME ONE Stop: 05/11/21 12:36 Last Admin: 05/11/21 13:32 Dose: Not Given Documented by: Iopamidol (Iopamidol 755 Mg/Ml 500 Ml Multipack Bottle) 100 ml IVPUSH ONETIME STA Stop: 05/11/21 12:39 Last Admin: 05/11/21 12:38 Dose: 100 ml Documented by: Ketorolac Tromethamine (Ketorolac 30 Mg/Ml Sdv) 30 mg IVPUSH ONETIME ONE Stop: 05/11/21 14:24 Last Admin: 05/11/21 14:27 Dose: 30 mg Documented by: Ketorolac Tromethamine (Ketorolac 30 Mg/Ml Sdv) 30 mg IVPUSH ONETIME ONE Stop: 05/12/21 09:03 Last Admin: 05/12/21 09:11 Dose: 30 mg Documented by: Ondansetron HCl (Ondansetron 4 Mg/2 Ml Sdv) 4 mg IVPUSH ONETIME ONE Stop: 05/11/21 14:40 Last Admin: 05/11/21 14:48 Dose: 4 mg Documented by: - Exam General: Alert, Oriented, Cooperative, No Acute Distress Lungs: Clear to Auscultation, Normal Respiratory Effort Cardiovascular: Regular Rate, Regular Rhythm GI/Abdominal Exam: Normal Bowel Sounds, Soft, Tender (Scant tenderness to left lower quadrant much improved from yesterday.) Extremities: Normal Inspection, Normal Range of Motion, Non-Tender, No Pedal Edema Wound/Incisions: Healing Well Neurological: No New Focal Deficit Psy/Mental Status: Alert, Normal Affect, Normal Mood - Patient Data Lab Results Last 24 hrs: Laboratory Results - last 24 hr 05/11/21 05/11/21 05/11/21 Range/Units 11:38 11:38 11:38 WBC 18.73 H (4.0-11.0) K/uL RBC 4.75 (4.30-5.90) M/uL Hgb 13.0 (12.0-16.0) g/dL Hct 38.8 (36.0-46.0) % MCV 81.7 (80.0-98.0) fL MCH 27.4 (27.0-32.0) pg MCHC 33.5 (31.0-37.0) g/dL RDW Std Deviation 41.7 (28.0-62.0) fl RDW Coeff of Jeffery 14 (11.0-15.0) % Plt Count 283 (150-400) K/uL MPV 10.50 (7.40-12.00) fL Neut % (Auto) 80.3 H (48.0-80.0) % Lymph % (Auto) 14.9 L (16.0-40.0) % [place] % (Auto) 4.4 (0.0-15.0) % Eos % (Auto) 0.3 (0.0-7.0) % Baso % (Auto) 0.1 (0.0-1.5) % Neut # (Auto) 15.1 H (1.4-5.7) K/uL Lymph # (Auto) 2.8 H (0.6-2.4) K/uL [place] # (Auto) 0.8 (0.0-0.8) K/uL Eos # (Auto) 0.1 (0.0-0.7) K/uL Baso # (Auto) 0.0 (0.0-0.1) K/uL Nucleated RBC % 0.0 /100WBC Nucleated RBCs # 0 K/uL Sodium 140 (136-145) mmol/L Potassium 4.1 (3.5-5.1) mmol/L Chloride 103 (98-107) mmol/L Carbon Dioxide 27.9 (21.0-32.0) mmol/L BUN 13 (7.0-18.0) mg/dL Creatinine 1.0 (0.6-1.0) mg/dL Est Cr Clr Drug Dosing 72.68 mL/min Estimated GFR (MDRD) > 60.0 ml/min Glucose 98 (74-106) mg/dL Lactic Acid (0.4-2.0) mmol/L Calcium 8.6 (8.5-10.1) mg/dL Total Bilirubin 0.5 (0.2-1.0) mg/dL AST 19 (15-37) IU/L ALT 28 (14-63) IU/L Alkaline Phosphatase 71 (46-116) U/L Total Protein 7.3 (6.4-8.2) g/dL Albumin 3.2 L (3.4-5.0) g/dL Globulin 4.1 H (2.6-4.0) g/dL Albumin/Globulin Ratio 0.8 L (0.9-1.6) Lipase 69 L (73-393) U/L HCG, Qual NEGATIVE (NEG) Urine Color Urine Appearance Urine pH (5.0-8.0) Ur Specific [place] (1.001-1.035) Urine Protein (NEGATIVE) mg/dL Urine Glucose (UA) (NEGATIVE) mg/dL Urine Ketones (NEGATIVE) mg/dL Urine Occult Blood (NEGATIVE) Urine Nitrite (NEGATIVE) Urine Bilirubin (NEGATIVE) Urine Urobilinogen (<2.0) EU/dL Ur Leukocyte Esterase (NEGATIVE) SARS-CoV-2 RNA (DARNELL) (NEGATIVE) 05/11/21 05/11/21 05/11/21 Range/Units 12:13 12:19 14:40 WBC (4.0-11.0) K/uL RBC (4.30-5.90) M/uL Hgb (12.0-16.0) g/dL Hct (36.0-46.0) % MCV (80.0-98.0) fL MCH (27.0-32.0) pg MCHC (31.0-37.0) g/dL RDW Std Deviation (28.0-62.0) fl RDW Coeff of Jeffery (11.0-15.0) % Plt Count (150-400) K/uL MPV (7.40-12.00) fL Neut % (Auto) (48.0-80.0) % Lymph % (Auto) (16.0-40.0) % [place] % (Auto) (0.0-15.0) % Eos % (Auto) (0.0-7.0) % Baso % (Auto) (0.0-1.5) % Neut # (Auto) (1.4-5.7) K/uL Lymph # (Auto) (0.6-2.4) K/uL [place] # (Auto) (0.0-0.8) K/uL Eos # (Auto) (0.0-0.7) K/uL Baso # (Auto) (0.0-0.1) K/uL Nucleated RBC % /100WBC Nucleated RBCs # K/uL Sodium (136-145) mmol/L Potassium (3.5-5.1) mmol/L Chloride (98-107) mmol/L Carbon Dioxide (21.0-32.0) mmol/L BUN (7.0-18.0) mg/dL Creatinine (0.6-1.0) mg/dL Est Cr Clr Drug Dosing mL/min Estimated GFR (MDRD) ml/min Glucose (74-106) mg/dL Lactic Acid 1.1 (0.4-2.0) mmol/L Calcium (8.5-10.1) mg/dL Total Bilirubin (0.2-1.0) mg/dL AST (15-37) IU/L ALT (14-63) IU/L Alkaline Phosphatase (46-116) U/L Total Protein (6.4-8.2) g/dL Albumin (3.4-5.0) g/dL Globulin (2.6-4.0) g/dL Albumin/Globulin Ratio (0.9-1.6) Lipase (73-393) U/L HCG, Qual (NEG) Urine Color YELLOW Urine Appearance SLT CLOUDY Urine pH 6.0 (5.0-8.0) Ur Specific [place] 1.025 (1.001-1.035) Urine Protein NEGATIVE (NEGATIVE) mg/dL Urine Glucose (UA) NEGATIVE (NEGATIVE) mg/dL Urine Ketones NEGATIVE (NEGATIVE) mg/dL Urine Occult Blood NEGATIVE (NEGATIVE) Urine Nitrite NEGATIVE (NEGATIVE) Urine Bilirubin NEGATIVE (NEGATIVE) Urine Urobilinogen 0.2 (<2.0) EU/dL Ur Leukocyte Esterase NEGATIVE (NEGATIVE) SARS-CoV-2 RNA (DARNELL) NEGATIVE (NEGATIVE) 05/12/21 05/12/21 Range/Units 04:52 04:52 WBC 11.82 H (4.0-11.0) K/uL RBC 4.38 (4.30-5.90) M/uL Hgb 11.8 L (12.0-16.0) g/dL Hct 35.9 L (36.0-46.0) % MCV 82.0 (80.0-98.0) fL MCH 26.9 L (27.0-32.0) pg MCHC 32.9 (31.0-37.0) g/dL RDW Std Deviation 42.8 (28.0-62.0) fl RDW Coeff of Jeffery 14 (11.0-15.0) % Plt Count 233 (150-400) K/uL MPV 10.20 (7.40-12.00) fL Neut % (Auto) 74.5 (48.0-80.0) % Lymph % (Auto) 19.3 (16.0-40.0) % [place] % (Auto) 5.3 (0.0-15.0) % Eos % (Auto) 0.7 (0.0-7.0) % Baso % (Auto) 0.2 (0.0-1.5) % Neut # (Auto) 8.8 H (1.4-5.7) K/uL Lymph # (Auto) 2.3 (0.6-2.4) K/uL [place] # (Auto) 0.6 (0.0-0.8) K/uL Eos # (Auto) 0.1 (0.0-0.7) K/uL Baso # (Auto) 0.0 (0.0-0.1) K/uL Nucleated RBC % 0.0 /100WBC Nucleated RBCs # 0 K/uL Sodium 140 (136-145) mmol/L Potassium 4.0 (3.5-5.1) mmol/L Chloride 105 (98-107) mmol/L Carbon Dioxide 28.6 (21.0-32.0) mmol/L BUN 11 (7.0-18.0) mg/dL Creatinine 1.0 (0.6-1.0) mg/dL Est Cr Clr Drug Dosing 72.68 mL/min Estimated GFR (MDRD) > 60.0 ml/min Glucose 94 (74-106) mg/dL Lactic Acid (0.4-2.0) mmol/L Calcium 7.9 L (8.5-10.1) mg/dL Total Bilirubin (0.2-1.0) mg/dL AST (15-37) IU/L ALT (14-63) IU/L Alkaline Phosphatase (46-116) U/L Total Protein (6.4-8.2) g/dL Albumin (3.4-5.0) g/dL Globulin (2.6-4.0) g/dL Albumin/Globulin Ratio (0.9-1.6) Lipase (73-393) U/L HCG, Qual (NEG) Urine Color Urine Appearance Urine pH (5.0-8.0) Ur Specific [place] (1.001-1.035) Urine Protein (NEGATIVE) mg/dL Urine Glucose (UA) (NEGATIVE) mg/dL Urine Ketones (NEGATIVE) mg/dL Urine Occult Blood (NEGATIVE) Urine Nitrite (NEGATIVE) Urine Bilirubin (NEGATIVE) Urine Urobilinogen (<2.0) EU/dL Ur Leukocyte Esterase (NEGATIVE) SARS-CoV-2 RNA (DARNELL) (NEGATIVE) Result Diagrams: 05/12/21 04:52 05/12/21 04:52 Sepsis Event Note - Evaluation Sepsis Screening Result: No Definite Risk - Focused Exam Vital Signs: Vital Signs Temp Pulse Resp BP Pulse Ox 05/12/21 07:30 98.1 F 86 18 132/70 97 05/12/21 05:11 96.8 F L 81 17 115/61 98 05/12/21 01:00 99.0 F 84 17 110/54 L 97 - Problem List & Annotations (1) Diverticulitis SNOMED Code(s): 565161483 Code(s): K57.92 - DVTRCLI OF INTEST, PART UNSP, W/O PERF OR ABSCESS W/O BLEED Status: Acute Current Visit: Yes (2) SIRS (systemic inflammatory response syndrome) SNOMED Code(s): 043709638 Code(s): R65.10 - SIRS OF NON-INFECTIOUS ORIGIN W/O ACUTE ORGAN DYSFUNCTION Status: Acute Current Visit: Yes (3) Obesity SNOMED Code(s): 986608705, 054752198 Code(s): E66.9 - OBESITY, UNSPECIFIED Status: Chronic Current Visit: Yes - Problem List Review Problem List Initiated/Reviewed/Updated: Yes - My Orders Last 24 Hours: My Active Orders 05/11/21 15:57 Ambulate [RC] ASDIRECTED May Shower [RC] ASDIRECTED Oxygen Therapy [RC] PRN Up ad Priti [RC] ASDIRECTED VTE/DVT Education [RC] PER UNIT ROUTINE Vital Signs [RC] Q4H Ondansetron [Zofran] 4 mg IVPUSH Q4H PRN Sodium Chloride 0.9% [Saline Flush] 2.5 ml FLUSH ASDIRECTED PRN Saline Lock Insert [OM.PC] Routine Resuscitation Status Routine 05/11/21 15:58 Intake and Output [RC] Q12H 05/11/21 16:00 Enoxaparin [Lovenox] 40 mg SUBCUT Q24H Lactated Ringers [Ringers, Lactated] 1,000 ml IV Q8H 05/11/21 16:05 HYDROmorphone [Dilaudid] 0.5 mg IVPUSH Q3H PRN 05/11/21 19:00 metroNIDAZOLE/Normal Saline [Flagyl in NS 500 MG/100 ML] 500 mg Premix Bag 1 bag IV Q6H 05/12/21 Breakfast Clear Liquid Diet [DIET] 05/12/21 14:00 Levofloxacin/Dextrose 5%-Water [Levaquin in D5W 750 MG/150 ML] 750 mg Premix Bag 1 bag IV Q24H 05/13/21 05:11 BASIC METABOLIC PANEL,BMP [CHEM] AM CBC WITH AUTO DIFF [HEME] AM 05/14/21 05:11 BASIC METABOLIC PANEL,BMP [CHEM] AM CBC WITH AUTO DIFF [HEME] AM - Plan Plan:: This 31-year-old female admitted with acute sigmoid diverticulitis. 1. Acute sigmoid diverticulitis -Advance to clear liquid diet -Continue IV fluids LR 125 mL/h -Blood cultures pending -Continue Levaquin 750 IV daily and Flagyl 500 mg IV 4 times daily -Dilaudid and Zofran as needed pain and nausea -Arrange outpatient general surgery follow up for colonoscopy. -Given Toradol for headache we will continue to monitor. VTE prophylaxis: Lovenox GI prophylaxis: Protonix CODE STATUS: Full code Dispo: Possible home today or more likely in a.m..
[2021-05-12] MEDS: Ondansetron 4 MG/2 ML SDV IVPUSH PRN ×2 (10:52→16:55)
[2021-05-12] MEDS ORDERED: Levofloxacin/Dextrose 5%-Water 750 MG in Premix Bag 1 BAG IV SCH (14:00)
[2021-05-12] MEDS: Pantoprazole 40 MG in Sodium Chloride 0.9% 10 ML IV SCH (16:16)
[2021-05-12] MEDS: Enoxaparin 40 MG/0.4 ML Syringe SUBCUT SCH (16:19)
[2021-05-12] MEDS: Ketorolac 15 MG/ML SDV IVPUSH PRN (16:20)
--- NOTE | 2021-05-12 21:51 | PCM.SN.2 ---
- Free Text/Narrative Note: patient reporting sharp pain with inspiration on the upper shoulders. this started tonight after walking to the bathroom. Lung sounds clear, heart regular rate and rhythm. No chest pain on palpation. Patient believes it could be from laying down all day. Will get EKG. Patient not wanting further work up at this time. probability of PE is low.
[2021-05-13] MEDS: Lactated Ringers 1,000 ML IV SCH ×2 (01:00→10:36)
[2021-05-13] MEDS: metroNIDAZOLE/Normal Saline 500 MG in Premix Bag 1 BAG IV SCH ×2 (01:04→06:58)
[2021-05-13 05:57] LABS: BLOOD UREA NITROGEN,BUN 9 mg/dL (7.0-18.0); CARBON DIOXIDE,CO2 28.8 mmol/L (21.0-32.0); CHLORIDE,CL 102 mmol/L (98-107); GLUCOSE RANDOM 103 mg/dL (74-106); POTASSIUM,K 3.8 mmol/L (3.5-5.1); SODIUM,NA 138 mmol/L (136-145)
[2021-05-13] MEDS: Ketorolac 15 MG/ML SDV IVPUSH PRN (08:02)
--- NOTE | 2021-05-13 10:02 | PCM.DCSUM1 ---
Discharge Summary - Hospital Course Brief History: This 31-year-old female with past medical history of obesity presented to the ER today with left lower quadrant pain. She reports this pain started suddenly last evening and has progressively worsened to the point where she felt she need to be evaluated. She reports the pain has spread to cover the entire abdomen having dry heaves and some nausea. She reports that last evening she felt like she eventually had a fever but was not able to check it she felt like she was sweating even though she had the fan and AC on in her home. She reports that she felt as though she is had a sinus infection or increased congestion over the last week and otherwise has not felt well and was eating a lot of fast food and getting doordash. She otherwise has been eating more healthy and intentionally has lost 30 to 40 pounds over the last few months. She denies any chest pain shortness of breath palpitations. No dysuria but does report some increased abdominal pain when she is emptying her bladder. Denies any overt frequency urgency or pain with urination. She denies history of this in the past denies history of IBD or IBS but does report that her grandma has diverticulitis diverticulosis as well. She denies any history of bowel habit changes and no cancer history for her. She denies any history of colonoscopy in the past. She denies any tobacco use recreational drug use or alcohol use. In the ER leukocytosis 18,000 noted with a left shift. Platelet count 283,000. Sodium 140 potassium 4.1 BUN/creatinine 13 and 1.0. Lactic acid 1.1 lipase [address]CG negative. UA negative. CT of her abdomen pelvis was obtained due to abdominal pain and leukocytosis. This revealed enlarged liver with hepatic Stata ptosis. She was informed of this of the in the ER. It also showed focal segmental thickening and pericolonic inflammation of the mid sigmoid colon with uncomplicated diverticulitis remaining bowel is grossly unremarkable. Normal appendix. Upon arrival to the ER she was noted to be tachycardic with temperature of 96.3. Blood pressure stable 121/83. Patient lactic acid normal. She was treated with 2 L fluid bolus in the ER along with Flagyl and Levaquin. Blood cultures obtained prior to antibiotic administration. Patient to be admitted secondary to acute sigmoid diverticulitis. - Discharge Data Discharge Date: 05/13/21 Discharge Disposition: Home, Self-Care 01 Condition: Good - Referral to Home Health Primary Care Physician: Pratima Soto MD - Discharge Diagnosis/Problem(s) (1) Diverticulitis SNOMED Code(s): 424358336 ICD Code: K57.92 - DVTRCLI OF INTEST, PART UNSP, W/O PERF OR ABSCESS W/O BLEED Status: Acute Current Visit: Yes (2) SIRS (systemic inflammatory response syndrome) SNOMED Code(s): 239537354 ICD Code: R65.10 - SIRS OF NON-INFECTIOUS ORIGIN W/O ACUTE ORGAN DYSFUNCTION Status: Acute Current Visit: Yes (3) Obesity SNOMED Code(s): 413093694, 924525194 ICD Code: E66.9 - OBESITY, UNSPECIFIED Status: Chronic Current Visit: Yes - Patient Summary/Data Hospital Course: Admission diagnosis Acute uncomplicated sigmoid diverticulitis Discharge diagnoses Acute uncomplicated sigmoid diverticulitis Katherine was admitted secondary to abdominal pain and was found to have acute sigmoid diverticulitis. She was started on bowel rest, IV fluids, pain medications and antiemetics along with Levaquin and Flagyl. She has significant leukocytosis on arrival but on day 2 of admission this had improved significantly and today has further improved. She has been afebrile. Yesterday she was very eager for discharge she was advanced to clear liquid diet had mild pain eating and so she was counseled regarding treatment along with encouraged to stay another day for further monitoring. She was reluctant but did stay. Today she is feeling much improved she did have some shoulder pain overnight but feels this is likely from the bed and not being up moving as much is normal. She reports abdominal pain is improved and feels just sore to the left lower quadrant. She is tolerating clear liquids well without any nausea. She is passing gas. She remains afebrile and leukocytosis has resolved. She is very eager for discharge home and otherwise did not want to stay for further monitoring. She will be discharged home today with 1 more days of Levaquin and Flagyl. She was counseled on cephalexin as well as diet at home. She was discussed to have low fiber diet currently in the next few weeks increase her fiber due to diverticulosis. She was also counseled on slowly increasing diet from full liquid to soft and regular in the next coming week or so. She will have follow-up with PCP in 1 to 2 weeks. She will also follow-up with general surgery, Dr. White in the coming weeks to evaluate need for colonoscopy. All questions and concerns answered she was counseled to return to the ER or clinic sooner if concerns should arise. - Patient Instructions Diet: Full Liquid Diet, GI Soft/Low Residue/Low Fiber Diet, Other: slowly advance to low fiber, soft diet Activity: As Tolerated, No Strenuous Activities, Rest and Relax Today Showering/Bathing: May Shower Notify Provider of: Fever, Increased Pain, Swelling and Redness, Drainage, Nausea and/or Vomiting - Discharge Plan *PRESCRIPTION DRUG MONITORING PROGRAM REVIEWED*: Not Applicable *COPY OF PRESCRIPTION DRUG MONITORING REPORT IN PATIENT FE: Not Applicable Prescriptions/Med Rec: metroNIDAZOLE [Flagyl] 500 mg PO Q8H #36 tab levoFLOXacin [Levaquin] 750 mg PO DAILY #12 tab Home Medications: Home Meds Albuterol [Ventolin HFA] 2 puff INH Q4H PRN 03/23/18 [History] levoFLOXacin [Levaquin] 750 mg PO DAILY #12 tab 05/13/21 [Rx] metroNIDAZOLE [Flagyl] 500 mg PO Q8H #36 tab 05/13/21 [Rx] Oxygen Therapy Mode: Room Air Patient Handouts: High-Fiber Diet, Diverticulitis, [id number], Low-Fiber Eating Plan Referrals: Hong Chapman MD [Resident] - 05/18/21 1:30 pm (An appointment has been made with this primary care physician at [facility]; please arrive 15 minutes early with your ID and insurance card; face coverings are still required at this time.) Christine White MD [Physician] - 05/21/21 8:30 am (An appointment with the surgeon has been made for a consult regarding an outpatient colonscopy; please arrive at this appointment 15 minutes early with your ID and insurance cards. At this time face masks are still required.) - Discharge Summary/Plan Comment DC Time >30 min.: No - Patient Data Vitals - Most Recent: Last Vital Signs Temp 98.7 F 05/13/21 06:45 Pulse 96 05/13/21 06:45 Resp 14 05/13/21 06:45 BP 117/82 05/13/21 06:45 Pulse Ox 97 05/13/21 06:45 Weight - Most Recent: 112.763 kg I&O - Last 24 hours: Intake & Output 05/12/21 05/13/21 05/13/21 22:59 06:59 14:59 Intake Total 2826 810 Output Total 1600 1300 Balance 1226 -490 Lab Results - Last 24 hrs: Laboratory Results - last 24 hr 05/13/21 05/13/21 Range/Units 05:14 05:14 WBC 9.36 (4.0-11.0) K/uL RBC 4.27 L (4.30-5.90) M/uL Hgb 11.4 L (12.0-16.0) g/dL Hct 34.5 L (36.0-46.0) % MCV 80.8 (80.0-98.0) fL MCH 26.7 L (27.0-32.0) pg MCHC 33.0 (31.0-37.0) g/dL RDW Std Deviation 41.5 (28.0-62.0) fl RDW Coeff of Jeffery 14 (11.0-15.0) % Plt Count 211 (150-400) K/uL MPV 9.90 (7.40-12.00) fL Neut % (Auto) 74.6 (48.0-80.0) % Lymph % (Auto) 18.9 (16.0-40.0) % [place] % (Auto) 6.3 (0.0-15.0) % Eos % (Auto) 0.1 (0.0-7.0) % Baso % (Auto) 0.1 (0.0-1.5) % Neut # (Auto) 7.0 H (1.4-5.7) K/uL Lymph # (Auto) 1.8 (0.6-2.4) K/uL [place] # (Auto) 0.6 (0.0-0.8) K/uL Eos # (Auto) 0.0 (0.0-0.7) K/uL Baso # (Auto) 0.0 (0.0-0.1) K/uL Nucleated RBC % 0.0 /100WBC Nucleated RBCs # 0 K/uL Sodium 138 (136-145) mmol/L Potassium 3.8 (3.5-5.1) mmol/L Chloride 102 (98-107) mmol/L Carbon Dioxide 28.8 (21.0-32.0) mmol/L BUN 9 (7.0-18.0) mg/dL Creatinine 1.0 (0.6-1.0) mg/dL Est Cr Clr Drug Dosing 72.68 mL/min Estimated GFR (MDRD) > 60.0 ml/min Glucose 103 (74-106) mg/dL Calcium 7.8 L (8.5-10.1) mg/dL MAX Results - Last 24 hrs: Microbiology 05/11/21 13:05 Aerobic Blood Culture - Preliminary Blood - Venous - Lab Draw NO GROWTH AFTER 1 DAY Anaerobic Blood Culture - Preliminary NO GROWTH AFTER 1 DAY 05/11/21 12:58 Aerobic Blood Culture - Preliminary Blood - Venous NO GROWTH AFTER 1 DAY Anaerobic Blood Culture - Preliminary NO GROWTH AFTER 1 DAY Med Orders - Current: Current Medications Enoxaparin Sodium (Enoxaparin 40 Mg/0.4 Ml Syringe) 40 mg SUBCUT Q24H [facility] Last Admin: 05/12/21 16:19 Dose: 40 mg Documented by: Hydromorphone HCl (Hydromorphone 1 Mg/Ml Syringe) 0.5 mg IVPUSH Q3H PRN PRN Reason: Pain (severe 7-10) Last Admin: 05/12/21 04:13 Dose: 0.5 mg Documented by: Lactated Ringer's (Ringers, Lactated) 1,000 mls @ 125 mls/hr IV Q8H [facility] Last Admin: 05/13/21 01:00 Dose: 125 mls/hr Documented by: Pantoprazole Sodium 40 mg/ (Sodium Chloride) 10 mls @ 300 mls/hr IV Q24H [facility] Last Admin: 05/12/21 16:16 Dose: 300 mls/hr Documented by: Metronidazole 500 mg/ Premix 100 mls @ 100 mls/hr IV Q6H [facility] Last Admin: 05/13/21 06:58 Dose: 100 mls/hr Documented by: Ketorolac Tromethamine (Ketorolac 15 Mg/Ml Sdv) 15 mg IVPUSH Q6H PRN PRN Reason: Pain Last Admin: 05/13/21 08:02 Dose: 15 mg Documented by: Levofloxacin (Levofloxacin 750 Mg Tab) 750 mg PO Q24H [facility] Ondansetron HCl (Ondansetron 4 Mg/2 Ml Sdv) 4 mg IVPUSH Q4H PRN PRN Reason: Nausea Last Admin: 05/12/21 16:55 Dose: 4 mg Documented by: Sodium Chloride (Sodium Chloride 0.9% 2.5 Ml Syringe) 2.5 ml FLUSH ASDIRECTED PRN PRN Reason: Keep Vein Open Discontinued Medications Hydromorphone HCl (Hydromorphone 2 Mg/Ml Syringe) 0.5 mg IVPUSH ONETIME ONE Stop: 05/11/21 14:24 Last Admin: 05/11/21 14:26 Dose: 0.5 mg Documented by: Sodium Chloride (Normal Saline) 1,000 mls @ 999 mls/hr IV BOLUS ONE Stop: 05/11/21 12:21 Last Admin: 05/11/21 11:50 Dose: 999 mls/hr Documented by: Sodium Chloride (Normal Saline) 1,000 mls @ 999 mls/hr IV STAT ONE Stop: 05/11/21 13:14 Last Admin: 05/11/21 13:14 Dose: 999 mls/hr Documented by: Metronidazole 500 mg/ Premix 100 mls @ 100 mls/hr IV ONETIME ONE Stop: 05/11/21 15:13 Last Admin: 05/11/21 14:26 Dose: 100 mls/hr Documented by: Levofloxacin/Dextrose 750 mg/ (Premix) 150 mls @ 100 mls/hr IV ONETIME ONE Stop: 05/11/21 15:53 Last Admin: 05/11/21 15:55 Dose: 100 mls/hr Documented by: Levofloxacin/Dextrose 750 mg/ (Premix) 150 mls @ 100 mls/hr IV Q24H [facility] Last Admin: 05/12/21 14:08 Dose: 100 mls/hr Documented by: Metronidazole 500 mg/ Premix 100 mls @ 100 mls/hr IV QID [facility] Iopamidol (Iopamidol 755 Mg/Ml 100 Ml Bottle) 100 ml IVPUSH ONETIME ONE Stop: 05/11/21 12:36 Last Admin: 05/11/21 13:32 Dose: Not Given Documented by: Iopamidol (Iopamidol 755 Mg/Ml 500 Ml Multipack Bottle) 100 ml IVPUSH ONETIME STA Stop: 05/11/21 12:39 Last Admin: 05/11/21 12:38 Dose: 100 ml Documented by: Ketorolac Tromethamine (Ketorolac 30 Mg/Ml Sdv) 30 mg IVPUSH ONETIME ONE Stop: 05/11/21 14:24 Last Admin: 05/11/21 14:27 Dose: 30 mg Documented by: Ketorolac Tromethamine (Ketorolac 30 Mg/Ml Sdv) 30 mg IVPUSH ONETIME ONE Stop: 05/12/21 09:03 Last Admin: 05/12/21 09:11 Dose: 30 mg Documented by: Ondansetron HCl (Ondansetron 4 Mg/2 Ml Sdv) 4 mg IVPUSH ONETIME ONE Stop: 05/11/21 14:40 Last Admin: 05/11/21 14:48 Dose: 4 mg Documented by:
[2021-05-13] MEDS ORDERED: Levofloxacin 750 MG Tab PO SCH (11:00)
== END 2021-05-13 11:20 | disposition home or self-care (01) ==
LOC: MW.ED 10:51 → MW.MS 15:51
PROVIDERS: ADMIT Internal Medicine; ATTEND Internal Medicine
DX: K57.32 Diverticulitis of large intestine without perforation or abscess without bleeding (principal); R65.10 Systemic inflammatory response syndrome (SIRS) of non-infectious origin without acute organ dysfunction; D72.829 Elevated white blood cell count, unspecified; E66.9 Obesity, unspecified; J45.909 Unspecified asthma, uncomplicated; Z98.890 Other specified postprocedural states; Z91.010 Allergy to peanuts; Z79.899 Other long term (current) drug therapy; Z20.822 Contact with and (suspected) exposure to COVID-19
CPT/HCPCS: 36415; 74177; 76830; 80048; 80053; 81003; 83605; 83690; 84703; 85025; 87040; 87635; 93005; 96365; 96366; 96367; 96372; 96375; 96376; 99285; A9270; C9113; G0378; J1170; J1650; J1885; J1956; J2405; J3490; J7030; J7120; Q9967; 99284; U0002

== ENCOUNTER 2021-05-21 14:01 | Emergency (ER) | payer BC ==
[2021-05-21] MEDS ORDERED: Piperacillin/Tazobactam 3.375 GM in Sodium Chloride 0.9% 50 ML IV ONE (14:25)
[2021-05-21] MEDS ORDERED: Sodium Chloride 0.9% 2.5 ML Syringe FLUSH PRN (14:25)
[2021-05-21] MEDS ORDERED: Sodium Chloride 0.9% 10 ML Syringe FLUSH PRN (14:25)
--- NOTE | 2021-05-21 14:27 | EDM.PDOC ---
ED HPI GENERAL MEDICAL PROBLEM - General Chief Complaint: Abdominal Pain Stated Complaint: ABCESS ON COLON Time Seen by Provider: 05/21/21 14:03 Source of Information: Reports: Patient History Limitations: Reports: No Limitations - History of Present Illness INITIAL COMMENTS - FREE TEXT/NARRATIVE: 31-year-old female past medical history obesity, diverticulitis presents for abnormal CT performed as an outpatient. Patient was recently admitted on 05/11 to the hospital for uncomplicated diverticulitis. She was given Levaquin and Flagyl IV for period of 2 days and then sent home with Levaquin and Flagyl to take p.o. she was told to follow-up with general surgery. She went for follow- up today and noted that she is having continued and worsening pain. An outpatient CT was ordered as well as a CBC. The CBC revealed a white blood cell count of 15. This is uptrending from when the patient was initially hospitalized. CT imaging revealed a 6.6 x 3.3 cm right lower quadrant abscess as well as a 5.4 x 2.7 cm cul-de-sac abscess. This is in comparison with CT performed on showing uncomplicated mid sigmoid diverticulitis. The patient was advised to come to the emergency department so that we can help arrange transfer of care to a larger [facility] Center with interventional radiology capabilities. Patient notes that she finished her antibiotics 2 days ago and began experiencing worsening diffuse lower abdominal pain yesterday evening. She denies any fevers at home and has been monitoring her temperature. Abdomen Pain Score (Numeric/FACES): 1 - Related Data Allergies Allergy/AdvReac Type Severity Reaction Status Date / Time peanut Allergy Anaphylactic Verified 05/21/21 14:30 Shock Home Meds: Home Meds Albuterol [Ventolin HFA] 2 puff INH Q4H PRN 03/23/18 [History] Ketorolac [Toradol] 10 mg PO DAILY 05/21/21 [History] Past Medical History HEENT History: Reports: Allergic Rhinitis, Impaired Vision, Other (See Below) Other HEENT History: wears glasses, hx of fx jaw Cardiovascular History: Reports: None Respiratory History: Reports: Asthma Gastrointestinal History: Reports: Other (See Below) Other Gastrointestinal History: heartburn with [employer] History: Reports: Musculoskeletal History: Reports: Fracture Other Musculoskeletal History: hx of fx jaw, fingers and wrist Neurological History: Reports: Other (See Below) Other Neuro History: hx of motion sickness Psychiatric History: Reports: Anxiety Endocrine/Metabolic History: Reports: Obesity/BMI 30+ - Infectious Disease History Infectious Disease History: Reports: None - Past Surgical History Head Surgeries/Procedures: Reports: None HEENT Surgical History: Reports: Oral Surgery Other HEENT Surgeries/Procedures: wisdom teeth Female Surgical History: Reports: Section, Tubal Ligation, Other (See Below) Other Female Surgeries/Procedures: Uterine polyps Social & Family History - Family History HEENT: Reports: Macular Degeneration Cardiac: Reports: None Respiratory: Reports: Asthma GI: Reports: None : Reports: None OBGYN: Reports: , Other (See Below) Other OBGYN Family History: pt has history of uterine polyps Musculoskeletal: Reports: None Neurological: Reports: Alzheimers Disease, Dementia Psychiatric: Reports: Anxiety Endocrine/Metabolic: Reports: None Hematologic: Reports: None Immunologic: Reports: None Dermatologic: Reports: None Oncologic: Reports: Breast, Lung Other Oncologic Family History: aunt- breast cancer. uncle- lung cancer - Caffeine Use Caffeine Use: Reports: Coffee - Living Situation & Occupation Living situation: Reports: with Family Occupation: Employed ED ROS GENERAL - Review of Systems Review Of Systems: Comprehensive ROS is negative, except as noted in HPI. ED EXAM, GENERAL - Physical Exam Exam: See Below Exam Limited By: No Limitations General Appearance: Alert, WD/WN, No Apparent Distress Ears: Hearing Grossly Normal Throat/Mouth: Normal Voice, No Airway Compromise Head: Atraumatic, Normocephalic Neck: Normal Inspection Respiratory/Chest: No Respiratory Distress, Lungs Clear, Normal Breath Sounds, No Accessory Muscle Use Cardiovascular: Normal Peripheral Pulses, Regular Rate, Rhythm GI/Abdominal: Soft, Non-Tender. No: Guarding Extremities: Normal Inspection Neurological: Alert, Normal Cognition, Normal Gait Psychiatric: Normal Affect, Normal Mood Course - Vital Signs Last Recorded V/S: Last Vital Signs Temp 97.3 F 05/21/21 14:25 Pulse 108 H 05/21/21 14:25 Resp 18 05/21/21 14:25 BP 102/59 L 05/21/21 14:25 Pulse Ox 96 05/21/21 14:25 - Orders/Labs/Meds Orders: Active Orders 24 hr Category Date Time Status COMPREHENSIVE METABOLIC PN,CMP [CHEM] Stat Lab 05/21/21 14:25 Ordered CORONAVIRUS COVID-19 DARNELL [MOLEC] Stat Lab 05/21/21 14:25 Ordered CULTURE BLOOD [BC] Stat Lab 05/21/21 14:28 Ordered CULTURE BLOOD [BC] Stat Lab 05/21/21 14:28 Ordered LACTATE SEPSIS W/ REFLEX [CHEM] Stat Lab 05/21/21 14:30 Ordered Piperacillin/Tazobactam [Piperacil-Tazobact] 3.375 gm Med 05/21/21 14:25 Active Sodium Chloride 0.9% [Normal Saline] 50 ml IV ONETIME Sodium Chloride 0.9% [Normal Saline] 1,000 ml Med 05/21/21 14:30 Active IV .Bolus Sodium Chloride 0.9% [Saline Flush] Med 05/21/21 14:25 Active 10 ml FLUSH ASDIRECTED PRN Sodium Chloride 0.9% [Saline Flush] Med 05/21/21 14:25 Active 2.5 ml FLUSH ASDIRECTED PRN Blood Culture x2 Reflex Set [OM.PC] Stat Oth 05/21/21 14:28 Ordered Saline Lock Insert [OM.PC] Stat Oth 05/21/21 14:25 Ordered Medication Orders Piperacillin Sod/Tazobactam (Sod 3.375 gm/ Sodium Chloride) 50 mls @ 100 mls/hr IV ONETIME ONE Stop: 05/21/21 14:54 Last Admin: 05/21/21 14:48 Dose: 100 mls/hr Documented by: SOLANGE Sodium Chloride (Normal Saline) 1,000 mls @ 999 mls/hr IV .Bolus ONE Stop: 05/21/21 15:30 Last Admin: 05/21/21 14:48 Dose: 999 mls/hr Documented by: SOLANGE Sodium Chloride (Sodium Chloride 0.9% 10 Ml Syringe) 10 ml FLUSH ASDIRECTED PRN PRN Reason: Keep Vein Open Last Admin: 05/21/21 14:48 Dose: 10 ml Documented by: SOLANGE Sodium Chloride (Sodium Chloride 0.9% 2.5 Ml Syringe) 2.5 ml FLUSH ASDIRECTED PRN PRN Reason: Keep Vein Open Last Admin: 05/21/21 14:48 Dose: 2.5 ml Documented by: SOLANGE Meds: Medications Generic Name Dose Route Start Last Admin Trade Name Freq PRN Reason Stop Dose Admin Piperacillin Sod/Tazobactam 50 mls @ 100 mls/hr 05/21/21 14:25 05/21/21 14:48 Sod 3.375 gm/ Sodium Chloride IV 05/21/21 14:54 100 mls/hr ONETIME ONE Administration Sodium Chloride 1,000 mls @ 999 mls/hr 05/21/21 14:30 05/21/21 14:48 Normal Saline IV 05/21/21 15:30 999 mls/hr .Bolus ONE Administration Sodium Chloride 10 ml 05/21/21 14:25 05/21/21 14:48 Sodium Chloride 0.9% 10 Ml Syringe FLUSH 10 ml ASDIRECTED PRN Administration Keep Vein Open Sodium Chloride 2.5 ml 05/21/21 14:25 05/21/21 14:48 Sodium Chloride 0.9% 2.5 Ml Syringe FLUSH 2.5 ml ASDIRECTED PRN Administration Keep Vein Open - Re-Assessments/Exams Free Text/Narrative Re-Assessment/Exam: 05/21/21 14:39 We will get CMP, lactate, blood cultures. Will give a fluid bolus. Will give Zosyn. Patient declines analgesia at this time and notes that she took a Toradol prior to coming to the hospital. Will reach out to outside hospitals with interventional radiology capabilities for transfer of care. 05/21/21 14:[address] Cortes at [facility] who agrees to accept patient. 05/21/21 14:53 It was recommended the patient be transferred by ambulance but patient declines. The risks of going by private vehicle were discussed with patient at length but she still elects to go by private vehicle. While I would prefer she go by ambulance I think this is a reasonable alternative. Departure - Departure Time of Disposition: 14:52 Disposition: DC/Tfer to Acute Hospital 02 Condition: Fair Clinical Impression: Intra-abdominal abscess, Diverticulitis - Discharge Information Referrals: Christine White MD [Primary Care Provider] - Forms: ED Department Discharge Sepsis Event Note (ED) - Focused Exam Vital Signs: Vital Signs Temp Pulse Resp BP Pulse Ox 05/21/21 14:25 97.3 F 108 H 18 102/59 L 96 - My Orders Last 24 Hours: My Active Orders 05/21/21 14:25 COMPREHENSIVE METABOLIC PN,CMP [CHEM] Stat CORONAVIRUS COVID-19 DARNELL [MOLEC] Stat Piperacillin/Tazobactam [Piperacil-Tazobact] 3.375 gm Sodium Chloride 0.9% [Normal Saline] 50 ml IV ONETIME Sodium Chloride 0.9% [Saline Flush] 10 ml FLUSH ASDIRECTED PRN Sodium Chloride 0.9% [Saline Flush] 2.5 ml FLUSH ASDIRECTED PRN Saline Lock Insert [OM.PC] Stat 05/21/21 14:28 CULTURE BLOOD [BC] Stat CULTURE BLOOD [BC] Stat Blood Culture x2 Reflex Set [OM.PC] Stat 05/21/21 14:30 LACTATE SEPSIS W/ REFLEX [CHEM] Stat Sodium Chloride 0.9% [Normal Saline] 1,000 ml IV .Bolus - Assessment/Plan Last 24 Hours: My Active Orders 05/21/21 14:25 COMPREHENSIVE METABOLIC PN,CMP [CHEM] Stat CORONAVIRUS COVID-19 DARNELL [MOLEC] Stat Piperacillin/Tazobactam [Piperacil-Tazobact] 3.375 gm Sodium Chloride 0.9% [Normal Saline] 50 ml IV ONETIME Sodium Chloride 0.9% [Saline Flush] 10 ml FLUSH ASDIRECTED PRN Sodium Chloride 0.9% [Saline Flush] 2.5 ml FLUSH ASDIRECTED PRN Saline Lock Insert [OM.PC] Stat 05/21/21 14:28 CULTURE BLOOD [BC] Stat CULTURE BLOOD [BC] Stat Blood Culture x2 Reflex Set [OM.PC] Stat 05/21/21 14:30 LACTATE SEPSIS W/ REFLEX [CHEM] Stat Sodium Chloride 0.9% [Normal Saline] 1,000 ml IV .Bolus
[2021-05-21] MEDS ORDERED: Sodium Chloride 0.9% 1,000 ML IV ONE (14:30)
[2021-05-21 15:27] LABS: BLOOD UREA NITROGEN,BUN 10 mg/dL (7.0-18.0); CARBON DIOXIDE,CO2 30.1 mmol/L (21.0-32.0); CHLORIDE,CL 100 mmol/L (98-107); GLUCOSE RANDOM 110 mg/dL (74-106); POTASSIUM,K 3.7 mmol/L (3.5-5.1); SODIUM,NA 137 mmol/L (136-145)
== END 2021-05-21 15:54 ==
LOC: MW.ED 14:01
DX: K65.1 Peritoneal abscess (principal); K57.20 Diverticulitis of large intestine with perforation and abscess without bleeding; E66.9 Obesity, unspecified; Z68.30 Body mass index [BMI] 30.0-30.9, adult; Z91.010 Allergy to peanuts
CPT/HCPCS: 36415; 80053; 83605; 87040; 96365; 99284; J2543; J7030

== ENCOUNTER 2022-12-27 10:25 | Day surgery (SDC) | payer BC ==
[~2022-12-27 10:25] MED LIST changes: +Sodium Chloride 0.9% 10 ML Syringe FLUSH PRN; +Sodium Chloride 0.9% 2.5 ML Syringe FLUSH PRN; +Sodium Chloride 0.9% 20 ML SDV IV PRN
[2022-12-27] MEDS ORDERED: Propofol 200 MG/20 ML SDV ONE (10:56)
[2022-12-27] MEDS ORDERED: fentaNYL 100 MCG/2 ML SDV ONE (10:56)
== END 2022-12-27 12:15 | disposition home or self-care (01) ==
LOC: MW.SDS 10:25
PROVIDERS: ATTEND Surgery
DX: K57.30 Diverticulosis of large intestine without perforation or abscess without bleeding (principal); K57.20 Diverticulitis of large intestine with perforation and abscess without bleeding; G43.909 Migraine, unspecified, not intractable, without status migrainosus; Z79.899 Other long term (current) drug therapy; Z91.010 Allergy to peanuts; Z83.71 Family history of colonic polyps; Z87.891 Personal history of nicotine dependence
CPT/HCPCS: 45378; 81025; J2704; J3010; J7120

== ENCOUNTER 2024-02-08 11:21 | Observation (INO) | payer BC ==
[2024-02-08] MEDS: Ketorolac 30 MG/ML SDV IVPUSH STA (12:26)
[2024-02-08] MEDS: Ondansetron 4 MG/2 ML SDV IVPUSH STA (12:26)
[2024-02-08] MEDS: Sodium Chloride 0.9% 1,000 ML IV STA ×2 (12:28→13:04)
[2024-02-08] MEDS: Sodium Chloride 0.9% 10 ML Syringe FLUSH PRN (12:28)
[2024-02-08] MEDS: Sodium Chloride 0.9% 2.5 ML Syringe FLUSH PRN (12:28)
[2024-02-08 12:31] LABS: BASOPHILS ABSOLUTE AUTO 0.04 K/uL (0.00-0.20); BASOPHILS PERCENT AUTO 0.2 % (0.0-1.0); EOSINOPHILS ABSOLUTE AUTO 0.16 K/uL (0.00-0.45); HEMATOCRIT 36.1 % (37.0-47.0); HEMOGLOBIN 12.3 g/dL (12.0-16.0); IMMATURE GRAN ABSOLUTE AUTO 0.07 K/uL (0.00-0.05); IMMATURE GRAN PERCENT AUTO 0.4 % (0.0-0.4); LYMPHOCYTES ABSOLUTE AUTO 2.62 K/uL (1.00-4.80); LYMPHOCYTES PERCENT AUTO 15.7 % (24.0-44.0); MEAN CORPUSCULAR HEMOGLOBIN 27.6 pg (28.0-32.0); MEAN CORPUSCULAR HGB CONC 34.1 g/dL (32.0-36.0); MEAN CORPUSCULAR VOLUME 81.1 fL (83.0-99.0); MEAN PLATELET VOLUME 9.4 fL (9.4-12.3); MONOCYTES ABSOLUTE AUTO 0.92 K/uL (0.00-0.80); MONOCYTES PERCENT AUTO 5.5 % (0.0-8.0); NEUTROPHILS PERCENT AUTO 77.2 % (41.0-71.0); PLATELET COUNT,PLT 322 K/uL (150-400); RED BLOOD CELL COUNT 4.45 M/uL (4.10-5.30); WHITE BLOOD CELL COUNT,WBC 16.71 K/uL (3.9-11.3)
[2024-02-08 12:54] LABS: A/G RATIO 0.7 (0.9-1.6); ALBUMIN 3.2 g/dL (3.4-5.0); BILIRUBIN TOTAL 0.5 mg/dL (0.2-1.0); CALCIUM 9.3 mg/dL (8.5-10.1); CARBON DIOXIDE,CO2 27.4 mmol/L (21.0-32.0); CREATININE 1.1 mg/dL (0.6-1.0); EST CRCL DRUG DOSING (CG) 64.84 mL/min; POTASSIUM,K 3.2 mmol/L (3.5-5.1); PROTEIN TOTAL,TP 7.6 g/dL (6.4-8.2)
[2024-02-08 13:15] LABS: APPEARANCE,URINE CLOUDY; BILIRUBIN,URINE SMALL (NEGATIVE); COLOR,URINE YELLOW; GLUCOSE,URINE NEGATIVE (NEGATIVE); KETONES,URINE 40 mg/dL (NEGATIVE); LEUKOCYTE ESTERASE,URINE NEGATIVE (NEGATIVE); NITRITE,URINE NEGATIVE (NEGATIVE); OCCULT BLOOD,URINE NEGATIVE (NEGATIVE); PROTEIN,URINE NEGATIVE (NEGATIVE); UROBILINOGEN,URINE 0.2 EU/dL (<2.0)
[2024-02-08] MEDS: Iopamidol 755 MG/ML 500 ML Multipack Bottle IVPUSH STA (13:28)
[2024-02-08] MEDS: Morphine 4 MG/ML Syringe IVPUSH STA ×3 (14:56→17:10)
[2024-02-08] MEDS: Doxycycline 100 MG Cap PO STA (14:57)
[2024-02-08] MEDS: metroNIDAZOLE 250 MG Tab PO STA (14:57)
[2024-02-08] MEDS: cefTRIAXone 1 GM in Sodium Chloride 0.9% 50 ML IV STA (14:57)
[2024-02-08 15:55] LABS: HIV12 AG/AB 4TH GEN W/REFLEX 0.2 INDEX (<1.0)
[2024-02-08 16:15] LABS: CANDIDA DNA PROBE NEGATIVE (NEGATIVE); GARDNERELLA DNA PROBE POSITIVE (NEGATIVE); TRICHOMONAS DNA PROBE NEGATIVE (NEGATIVE)
[2024-02-08 16:30] LABS: C. TRACHOMATIS BY PCR NOT DETECTED; N. GONORRHOEAE BY PCR NOT DETECTED
[2024-02-08] MEDS ORDERED: Ondansetron 4 MG Tab.DIS PO PRN (18:00)
[2024-02-08] MEDS ORDERED: Albuterol 0.083% 2.5 MG/3 ML Neb Soln NEB PRN (18:00)
[2024-02-08] MEDS ORDERED: Temazepam 15 MG Cap PO PRN (18:00)
[2024-02-08] MEDS ORDERED: Ibuprofen 800 MG Tab PO PRN (18:00)
[2024-02-08] MEDS ORDERED: Sodium Chloride 0.9% 10 ML Syringe FLUSH PRN (18:00)
[2024-02-08] MEDS ORDERED: Sodium Chloride 0.9% 2.5 ML Syringe FLUSH PRN (18:00)
[2024-02-08] MEDS ORDERED: Naloxone 0.4 MG/ML SDV IVPUSH PRN (18:00)
[2024-02-08] MEDS ORDERED: Sodium Chloride 0.9% 20 ML SDV IV PRN (18:00)
[2024-02-08] MEDS: Morphine 2 MG/ML SYRINGE IVPUSH PRN (19:43)
[2024-02-09] MEDS: Doxycycline 100 MG Cap PO SCH (02:57)
[2024-02-09] MEDS: metroNIDAZOLE 250 MG Tab PO SCH (02:58)
[2024-02-09] MEDS: Acetaminophen/Butalbital/Caffeine 325-50-40 MG Tab PO PRN (08:27)
[2024-02-09] MEDS: cefTRIAXone 1 GM in Sodium Chloride 0.9% 50 ML IV SCH (14:42)
== END 2024-02-09 16:45 | disposition home or self-care (01) ==
LOC: MW.ED 11:21 → MW.MS 17:05
PROVIDERS: ADMIT Obstetrics & Gynecology; ATTEND Obstetrics & Gynecology
DX: N70.93 Salpingitis and oophoritis, unspecified (principal); N76.0 Acute vaginitis; K57.90 Diverticulosis of intestine, part unspecified, without perforation or abscess without bleeding; E66.9 Obesity, unspecified; Z79.899 Other long term (current) drug therapy; Z91.010 Allergy to peanuts; Z68.36 Body mass index [BMI] 36.0-36.9, adult
CPT/HCPCS: 36415; 74177; 76830; 80053; 81003; 83690; 84703; 85025; 86592; 86803; 87389; 87480; 87491; 87510; 87591; 87660; 96361; 96365; 96375; 96376; 99285; A9270; J0696; J1885; J2270; J2405; J3490; J7030; Q9967; 99284; G0378

== ENCOUNTER 2024-03-15 10:59 | Emergency (ER) | payer BC ==
[2024-03-15 12:20] LABS: APPEARANCE,URINE CLEAR; BILIRUBIN,URINE NEGATIVE (NEGATIVE); GLUCOSE,URINE NEGATIVE (NEGATIVE); KETONES,URINE NEGATIVE (NEGATIVE); LEUKOCYTE ESTERASE,URINE NEGATIVE (NEGATIVE); NITRITE,URINE NEGATIVE (NEGATIVE); OCCULT BLOOD,URINE NEGATIVE (NEGATIVE); PROTEIN,URINE NEGATIVE (NEGATIVE); UROBILINOGEN,URINE 0.2 EU/dL (<2.0)
[2024-03-15 12:21] LABS: COLOR,URINE DARK YELLOW
[2024-03-15 13:24] LABS: BASOPHILS ABSOLUTE AUTO 0.04 K/uL (0.00-0.20); BASOPHILS PERCENT AUTO 0.5 % (0.0-1.0); EOSINOPHILS ABSOLUTE AUTO 0.22 K/uL (0.00-0.45); EOSINOPHILS PERCENT AUTO 2.5 % (0.0-6.0); HEMATOCRIT 37.3 % (37.0-47.0); HEMOGLOBIN 12.5 g/dL (12.0-16.0); IMMATURE GRAN ABSOLUTE AUTO 0.01 K/uL (0.00-0.05); IMMATURE GRAN PERCENT AUTO 0.1 % (0.0-0.4); LYMPHOCYTES ABSOLUTE AUTO 2.47 K/uL (1.00-4.80); LYMPHOCYTES PERCENT AUTO 28.1 % (24.0-44.0); MEAN CORPUSCULAR HEMOGLOBIN 27.4 pg (28.0-32.0); MEAN CORPUSCULAR HGB CONC 33.5 g/dL (32.0-36.0); MEAN CORPUSCULAR VOLUME 81.8 fL (83.0-99.0); MEAN PLATELET VOLUME 9.8 fL (9.4-12.3); MONOCYTES ABSOLUTE AUTO 0.47 K/uL (0.00-0.80); MONOCYTES PERCENT AUTO 5.4 % (0.0-8.0); NEUTROPHILS ABSOLUTE AUTO 5.57 K/uL (1.80-7.70); NEUTROPHILS PERCENT AUTO 63.4 % (41.0-71.0); PLATELET COUNT,PLT 275 K/uL (150-400); RED BLOOD CELL COUNT 4.56 M/uL (4.10-5.30); WHITE BLOOD CELL COUNT,WBC 8.78 K/uL (3.9-11.3)
[2024-03-15 13:46] LABS: A/G RATIO 0.8 (0.9-1.6); ALBUMIN 3.3 g/dL (3.4-5.0); BILIRUBIN TOTAL 0.4 mg/dL (0.2-1.0); CALCIUM 8.8 mg/dL (8.5-10.1); CARBON DIOXIDE,CO2 25.9 mmol/L (21.0-32.0); CREATININE 0.9 mg/dL (0.6-1.0); EST CRCL DRUG DOSING (CG) 76.06 mL/min; POTASSIUM,K 3.9 mmol/L (3.5-5.1); PROTEIN TOTAL,TP 7.7 g/dL (6.4-8.2)
== END 2024-03-15 14:47 | disposition home or self-care (01) ==
LOC: MW.ED 10:59
DX: R10.32 Left lower quadrant pain (principal); J45.909 Unspecified asthma, uncomplicated; E66.9 Obesity, unspecified; Z79.899 Other long term (current) drug therapy; Z79.82 Long term (current) use of aspirin; Z91.010 Allergy to peanuts; Z75.8 Other problems related to medical facilities and other health care; Z68.38 Body mass index [BMI] 38.0-38.9, adult
CPT/HCPCS: 36415; 80053; 81003; 81025; 83690; 85025; 99283; 99284